=== PATIENT | male | born 1955 | race African-American/Black ===

== ENCOUNTER 2017-01-19 01:04 | Emergency (ER) | payer OTHER ==
[~2017-01-19] VITALS: Ht 168.9 cm; Wt 115.8 kg
[2017-01-19 01:04] VITALS: Ht 168.9 cm; Wt 115.8 kg
[~2017-01-19 01:04] MED LIST: ACET325T51 PO; AMIO200T2 PO; ASPI81TA2 PO; DABI150C PO; DIGO250T72 PO; FURO80TA2 PO; HYDR-4078 PO; INSU100C14 SQ; INSU3INS3 SQ; LIRA0.6P2 SQ; MAGN400T6 PO; METO100T5 PO; MULT-1243 PO; OMEP-122 PO; POTA-81 PO; ROSU20TA PO; SPIR50TA3 PO; TAMS-1 PO
--- OUTSIDE RECORDS SUMMARY | 2017-01-19 01:08 | XMS REPORT | Referral Summary ---
Author Author [facility] Organization [facility] Address Unknown Phone Unavailable Care Team Providers Care Tile Applicator Name Role Phone Jatin Hancock Primary Care Physician [phone] Encounter [facility] [id number] Date(s): 12/14/16 - 12/14/16 [facility] [address], [place] [address] Discharge Diagnosis: HFrEF (heart failure with reduced ejection fraction) Discharge Disposition: 01-Home or Self Care Attending Physician: Marika Wilson APRN, NP-C Admitting Physician: Marika Wilson APRN DIGITAL MEDIA COORDINATORParvezC Vital Signs Most recent to 1 oldest [Reference Range]: Peripheral Pulse 72 bpm Rate [60-100 bpm] (12/14/16 8:28 AM) Blood Pressure 126/70 mmHg [90-140/60-90 mmHg] (12/14/16 8:28 AM) Problem List Condition Effective Dates Status Health Status Informant Adult-onset Active obesity(Confirmed) Afib(Confirmed) Active Benign essential Active hypertension(Confirm ed) Pacemaker(Confirmed) Active patient Cardiomyopathy(Confi Active rmed) Combined form of Active senile cataract(Confirmed) Arrhythmia(Confirmed Active ) CHF (congestive Active heart failure)(Confirmed) CAD (coronary artery Active disease)(Confirmed) Generalized Active osteoarthritis(Confi rmed) Diabetes Active uncontrolled, ophth NT ST(Confirmed) Encounter for Active therapeutic drug monitoring(Confirmed ) Dyslipidemia(Confirm Active ed) Hx of amiodarone Active therapy(Confirmed) Anticoagulation Active adequate(Confirmed) AICD (automatic Active patient cardioverter/defibri llator) present(Confirmed) Heart Active disease(Confirmed) Erectile Active dysfunction(Confirme d) Irregular heart Active rhythm(Confirmed) Macular Active edema(Confirmed) Morbid Active obesity(Confirmed) Multinodular Active goiter(Confirmed) DUYEN (obstructive Active sleep apnea)(Confirmed) Periodic limb Active movements of sleep(Confirmed) Proliferative Active diabetic retinopathy(Confirme d) PDR (proliferative Active diabetic retinopathy)(Confirm ed) Retinal Active edema(Confirmed) DM (diabetes Active mellitus), type 2 with ophthalmic complications(Confir med) Type II diabetes Active mellitus uncontrolled (finding)(Confirmed) Solitary thyroid Active nodule(Confirmed) Allergies, Adverse Reactions, Alerts No Known Medication Allergies Medications acetaminophen 325 mg oral tablet 650 mg 2 tabs, Oral, q4hr, Pain Mild (1-3), 0 Refill(s) Start Date: 07/22/15 Status: Ordered amiodarone 200 mg oral tablet See Instructions, TAKE ONE TABLET BY MOUTH EVERY DAY, # 30 tabs, 5 Refill(s), eRx: [facility] #[id number], TAKE ONE TABLET BY MOUTH EVERY DAY Start Date: 06/20/16 Status: Ordered aspirin 81 mg, Oral, Daily, 0 Refill(s) Start Date: 08/11/16 Status: Ordered Centrum Silver 1 tabs, Oral, Daily, 0 Refill(s) Start Date: 04/09/14 Status: Ordered digoxin 250 mcg (0.25 mg) oral tablet See Instructions, TAKE ONE TABLET BY MOUTH EVERY DAY, # 90 tabs, eRx: [facility] #[id number], TAKE ONE TABLET BY MOUTH EVERY DAY Start Date: 08/11/16 Status: Ordered Entresto 49 mg-51 mg oral tablet 1 tabs, Oral, BID, # 60 tabs, 0 Refill(s), samples given to patient (Rx) Start Date: 11/30/16 Status: Ordered FREESTYLE LITE TEST STRIP See Instructions, CHECK BLOOD SUGAR THREE TIMES A DAY, # 100 strip, 4 Refill(s) , eRx: [facility] #[id number], CHECK BLOOD SUGAR THREE TIMES A DAY Start Date: 05/17/16 Status: Ordered furosemide 80 mg oral tablet See Instructions, TAKE ONE TABLET BY MOUTH DAILY, # 90 tabs, 1 Refill(s), eRx: [facility] #[id number], TAKE ONE TABLET BY MOUTH DAILY Start Date: 05/17/16 Status: Ordered Klor-Con M20 oral tablet, extended release See Instructions, TAKE TWO TABLETS BY MOUTH EVERY MORNING AND ONE TABLET BY MOUTH EVERY NIGHT AT BEDTIME, # 150 tabs, 0 Refill(s), Pharmacy: [facility] #[id number], TAKE TWO TABLETS BY MOUTH EVERY MORNING AND ONE TABLET BY MOUTH EVERY NIGHT AT BED... Start Date: 11/02/16 Status: Ordered KRO PEN NEEDLES 31G 6MM See Instructions, INJECT 5 TIMES DAILY, # 500 unknown unit, 2 Refill(s), eRx: [facility] #[id number], INJECT 5 TIMES DAILY Start Date: 01/19/16 Status: Ordered Lantus Solostar Pen 100 units/mL subcutaneous solution See Instructions, INJECT 52 UNITS SUB-Q IN THE MORNING AND 50 UNITS AT NIGHT, # 45 unknown unit, 11 Refill(s), eRx: [facility] #[id number], INJECT 52 UNITS SUB-Q IN THE MORNING AND 50 UNITS AT NIGHT Start Date: 11/23/15 Status: Ordered magnesium oxide 400 mg, Oral, Daily, as needed, 0 Refill(s) Start Date: 07/25/14 Status: Ordered Metoprolol Tartrate 100 mg oral tablet See Instructions, TAKE ONE AND ONE-HALF TABLETS BY MOUTH EVERY MORNING, AND ONE TABLET IN THE EVENING, # 225 tabs, eRx: [facility] [place] #[id number] Start Date: 10/28/16 Status: Ordered [place] 10 mg-325 mg oral tablet 1 tabs, Oral, q6hr, as needed for pain, May fill 12/17/16, # 60 tabs, 0 Refill(s) Start Date: 12/12/16 Status: Ordered NovoLOG FlexPen 100 units/mL subcutaneous solution See Instructions, INJECT 9 UNITS SUBCUTANEOUSLY BEFORE BREAKFAST, 17-22 UNITS BEFORE LUNCH, AND 28-38 UNITS BEFORE DINNER., # 30 unknown unit, 4 Refill(s), eRx: [facility] #[id number], INJECT 9 UNITS SUBCUTANEOUSLY BEFORE BREAKFAST, 17-22 UNITS BEFO... Start Date: 07/21/16 Status: Ordered omeprazole 20 mg oral delayed release capsule See Instructions, TAKE ONE CAPSULE BY MOUTH DAILY BEFORE BREAKFAST, # 30 caps, eRx: [facility] #[id number] Start Date: 11/04/16 Status: Ordered Pradaxa 150 mg oral capsule See Instructions, TAKE ONE CAPSULE BY MOUTH TWICE A DAY, # 180 caps, eRx: [facility] #[id number], TAKE ONE CAPSULE BY MOUTH TWICE A DAY Start Date: 10/12/16 Status: Ordered rosuvastatin 20 mg oral tablet See Instructions, TAKE ONE-HALF TABLET BY MOUTH DAILY, # 15 tabs, 3 Refill(s), eRx: [facility] #[id number] Start Date: 12/06/16 Status: Ordered spironolactone 50 mg oral tablet See Instructions, TAKE ONE TABLET BY MOUTH TWICE A DAY, # 60 tabs, 5 Refill(s), eRx: [facility] #[id number], TAKE ONE TABLET BY MOUTH TWICE A DAY Start Date: 10/06/16 Status: Ordered tamsulosin 0.4 mg oral capsule See Instructions, TAKE ONE CAPSULE BY MOUTH DAILY, # 30 caps, 1 Refill(s), eRx: [facility] #[id number] Start Date: 11/28/16 Status: Ordered Viagra 100 mg oral tablet 1 tabs, Oral, Daily, as needed 1 hour prior to intercourse, # 10 tabs, 0 Refill( s), Pharmacy: [facility] #[id number], 1 tabs Oral Daily,PRN:as needed 1 hour prior to intercourse Start Date: 07/30/14 Status: Ordered Victoza 18 mg/3 mL subcutaneous solution See Instructions, DIAL AND INJECT SUBCUTANEOUSLY 1.8MG DAILY, # 9 unknown unit, 4 Refill(s), eRx: [facility] #[id number], DIAL AND INJECT SUBCUTANEOUSLY 1.8MG DAILY Start Date: 07/12/16 Status: Ordered Results No data available for this section Immunizations Given and Recorded Vaccine Date Status Refusal Reason tetanus/diphth/pertuss (Tdap) adult/adol 05/13/15 Given influenza virus vaccine, inactivated1 08/10/16 Recorded influenza virus vaccine, inactivated 07/30/14 Recorded influenza virus vaccine, live 09/03/13 Given influenza virus vaccine, live 08/30/12 Given pneumococcal 23-polyvalent vaccine 08/21/03 Given 1Location History: given at [facility] [place] Procedures Procedure Date Related Diagnosis Body Site Colonoscopy: polyps (3), tubular adenoma 07/06/07 Implantable defibrillator Implantation of heart pacemaker - single chamber Social History Social History Type Response Smoking Status Never smoker Assessment and Plan Referrals to Other Providers Referred by: Marika Wilson APRN, DIGITAL MEDIA COORDINATOR-C
--- OUTSIDE RECORDS SUMMARY | 2017-01-19 01:09 | XMS REPORT | Referral Summary ---
Author Author [facility] Organization [facility] Address Unknown Phone Unavailable Care Team Providers Care Fast Food Cook Name Role Phone Jatin Hancock Primary Care Physician [phone] Encounter [facility] [id number] Date(s): 11/11/16 - 11/11/16 [facility] [address] [place], [place] [address] Discharge Disposition: 01-Home or Self Care Attending Physician: Guille Bird MD Referring Physician: Guille Bird MD Vital Signs No data available for this section Problem List Condition Effective Dates Status Health [...] DAY, # 30 tabs, 5 Refill(s), eRx: [facility] #[id number], TAKE ONE TABLET BY MOUTH EVERY DAY Start Date: 06/20/16 Status: Ordered aspirin 81 mg, Oral, Daily, 0 Refill(s) Start Date: 08/11/16 Status: Ordered Centrum Silver 1 tabs, Oral, Daily, 0 Refill(s) Start Date: 04/09/14 Status: Ordered digoxin 250 mcg (0.25 mg) oral tablet See Instructions, TAKE ONE TABLET BY MOUTH EVERY DAY, # 90 tabs, eRx: [facility] #[id number], TAKE ONE TABLET BY MOUTH EVERY DAY Start Date: 08/11/16 Status: Ordered Flomax 0.4 mg oral capsule 0.4 mg 1 caps, Oral, Daily, # 30 caps, 2 Refill(s), Pharmacy: [facility] # [id number], 1 caps Oral Daily Start Date: 03/19/15 Status: Ordered FREESTYLE LITE TEST STRIP See Instructions, CHECK BLOOD SUGAR THREE TIMES A DAY, # 100 strip, 4 Refill(s) , eRx: [facility] #[id number], CHECK BLOOD SUGAR THREE TIMES A DAY Start Date: 05/17/16 Status: Ordered FREESTYLE LITE TEST STRIP See Instructions, CHECK BLOOD SUGAR THREE TIMES A DAY, # 100 strip, 5 Refill(s) , eRx: [facility] #[id number], CHECK BLOOD SUGAR THREE TIMES A DAY Start Date: 09/07/15 Status: Ordered furosemide 80 mg oral tablet See Instructions, TAKE ONE TABLET BY MOUTH DAILY, # 90 tabs, 1 Refill(s), eRx: [facility] #[id number], TAKE ONE TABLET BY MOUTH DAILY Start Date: 05/17/16 Status: Ordered Glucometer strips (DME) DME Item freestyle lite test strips check bs tid, See Instructions, # 100 Each , 6 Refill(s), Pharmacy: [facility] #[id number], freestyle lite test strips; check bs tid, Supply Start Date: 11/03/14 Status: Ordered insulin syringe, strips, flexpen insulin syringe, strips, flexpen, 0 Refill(s) Start Date: 04/09/14 Status: Ordered Klor-Con M20 oral tablet, extended release See Instructions, TAKE TWO TABLETS BY MOUTH EVERY MORNING AND ONE TABLET BY MOUTH EVERY NIGHT AT BEDTIME, # 150 tabs, 0 Refill(s), Pharmacy: [facility] #[id number], TAKE TWO TABLETS BY MOUTH EVERY MORNING AND ONE TABLET BY MOUTH EVERY NIGHT AT BED... Start Date: 11/02/16 Status: Ordered KRO PEN NEEDLES 31G 6MM See Instructions, INJECT 5 TIMES DAILY, # 500 unknown unit, 2 Refill(s), eRx: [facility] #[id number], INJECT 5 TIMES DAILY Start Date: 01/19/16 Status: Ordered Lantus Solostar Pen 100 units/mL subcutaneous solution See Instructions, INJECT 52 UNITS SUB-Q IN THE MORNING AND 50 UNITS AT NIGHT, # 45 unknown unit, 11 Refill(s), eRx: [facility] #[id number], INJECT 52 UNITS SUB-Q IN THE MORNING AND 50 UNITS AT NIGHT Start Date: 11/23/15 Status: Ordered lisinopril 20 mg oral tablet See Instructions, TAKE ONE TABLET BY MOUTH TWICE A DAY, # 180 tabs, 1 Refill(s) , Pharmacy: [facility] #[id number] Start Date: 08/24/16 Status: Ordered magnesium oxide 400 mg, Oral, Daily, 0 Refill(s) Start Date: 07/25/14 Status: Ordered Metoprolol Tartrate 100 mg oral tablet See Instructions, TAKE ONE AND ONE-HALF TABLETS BY MOUTH EVERY MORNING, AND ONE TABLET IN THE EVENING, # 225 tabs, eRx: [facility] #[id number] Start Date: 10/28/16 Status: Ordered [place] 10 mg-325 mg oral tablet 1 tabs, Oral, q6hr, as needed for pain, # 60 tabs, 0 Refill(s) Start Date: 10/19/16 Status: Ordered NovoLOG FlexPen 100 units/mL subcutaneous solution See Instructions, INJECT 9 UNITS SUBCUTANEOUSLY BEFORE BREAKFAST, 17-22 UNITS BEFORE LUNCH, AND 28-38 UNITS BEFORE DINNER., # 30 unknown unit, 4 Refill(s), eRx: [facility] #[id number], INJECT 9 UNITS SUBCUTANEOUSLY BEFORE BREAKFAST, 17-22 UNITS BEFO... Start Date: 07/21/16 Status: Ordered omeprazole 20 mg oral delayed release capsule See Instructions, TAKE ONE CAPSULE BY MOUTH DAILY BEFORE BREAKFAST, # 30 caps, eRx: [facility] #[id number] Start Date: 11/04/16 Status: Ordered Pradaxa 150 mg oral capsule See Instructions, TAKE ONE CAPSULE BY MOUTH TWICE A DAY, # 180 caps, eRx: [facility] #[id number], TAKE ONE CAPSULE BY MOUTH TWICE A DAY Start Date: 10/12/16 Status: Ordered rosuvastatin 20 mg oral tablet See Instructions, TAKE ONE-HALF TABLET BY MOUTH DAILY, # 15 tabs, 0 Refill(s), Pharmacy: [facility] #[id number], TAKE ONE-HALF TABLET BY MOUTH DAILY Start Date: 11/02/16 Status: Ordered spironolactone 50 mg oral tablet See Instructions, TAKE ONE TABLET BY MOUTH TWICE A DAY, # 60 tabs, 5 Refill(s), eRx: [facility] #[id number], TAKE ONE TABLET BY MOUTH TWICE A DAY Start Date: 10/06/16 Status: Ordered Viagra 100 mg oral tablet 1 tabs, Oral, Daily, as needed 1 hour prior to intercourse, # 10 tabs, 0 Refill( s), Pharmacy: [facility] #[id number], 1 tabs Oral Daily,PRN:as needed 1 hour prior to intercourse Start Date: 07/30/14 Status: Ordered Victoza 18 mg/3 mL subcutaneous solution See Instructions, DIAL AND INJECT SUBCUTANEOUSLY 1.8MG DAILY, # 9 unknown unit, 4 Refill(s), eRx: [facility] #[id number], DIAL AND INJECT SUBCUTANEOUSLY 1.8MG DAILY Start [...] vaccine 08/21/03 Given 1Location History: given at [facility] [place] Procedures Procedure Date Related Diagnosis Body Site Colonoscopy: polyps (3), tubular adenoma 07/06/07 Implantable defibrillator Implantation of heart pacemaker - single chamber Social History Social History Type Response Smoking Status Never smoker Assessment and Plan No data available for this section
--- OUTSIDE RECORDS SUMMARY | 2017-01-19 01:09 | XMS REPORT | Referral Summary ---
Author Author [facility] Organization [facility] Address Unknown Phone Unavailable Care Team Providers Care Statistical Machine Mechanic Name Role Phone Jatin Hancock Primary Care Physician [phone] Encounter [facility] [id number] Date(s): 08/24/16 - 08/24/16 [facility], [address] [place] [id number] Discharge Diagnosis: AICD (automatic cardioverter/defibrillator) present Discharge Diagnosis: Encounter for therapeutic drug monitoring Discharge Diagnosis: Chest pain Discharge Diagnosis: Pacemaker Discharge Diagnosis: Multinodular goiter Discharge Diagnosis: Adult-onset obesity Discharge Diagnosis: DM (diabetes mellitus), type 2 with ophthalmic complications Discharge Diagnosis: Benign essential hypertension Discharge Diagnosis: CAD (coronary artery disease) Discharge Diagnosis: Afib Discharge Disposition: 01-Home or Self Care Attending Physician: Markell Hancock MD Admitting Physician: Markell Hancock MD Vital Signs Most recent to 1 oldest [Reference Range]: Blood Pressure 140/90 mmHg [90-140/60-90 mmHg] (08/24/16 9:49 AM) Problem List Condition Effective Dates Status [...] Irregular heart Active rhythm(Confirmed) Macular Active edema(Confirmed) Multinodular Active goiter(Confirmed) Proliferative Active diabetic retinopathy(Confirme d) PDR (proliferative [...] DAY, # 30 tabs, 5 Refill(s), eRx: [facility] #[id number], TAKE ONE TABLET BY MOUTH EVERY DAY Start Date: 06/20/16 Status: Ordered aspirin 81 mg, Oral, Daily, 0 Refill(s) Start Date: 08/11/16 Status: Ordered Centrum Silver 1 tabs, Oral, Daily, 0 Refill(s) Start Date: 04/09/14 Status: Ordered digoxin 250 mcg (0.25 mg) oral tablet See Instructions, TAKE ONE TABLET BY MOUTH EVERY DAY, # 90 tabs, eRx: [facility] #[id number], TAKE ONE TABLET BY MOUTH EVERY DAY Start Date: 08/11/16 Status: Ordered Flomax 0.4 mg oral capsule 0.4 mg 1 caps, Oral, Daily, # 30 caps, 2 Refill(s), Pharmacy: [facility] # [id number], 1 caps Oral Daily Start Date: 03/19/15 Status: Ordered FREESTYLE LITE TEST STRIP See Instructions, CHECK BLOOD SUGAR THREE TIMES A DAY, # 100 strip, 4 Refill(s) , eRx: [facility] #[id number], CHECK BLOOD SUGAR THREE TIMES A DAY Start Date: 05/17/16 Status: Ordered FREESTYLE LITE TEST STRIP See Instructions, CHECK BLOOD SUGAR THREE TIMES A DAY, # 100 strip, 5 Refill(s) , eRx: [facility] #[id number], CHECK BLOOD SUGAR THREE TIMES A DAY Start Date: 09/07/15 Status: Ordered furosemide 80 mg oral tablet See Instructions, TAKE ONE TABLET BY MOUTH DAILY, # 90 tabs, 1 Refill(s), eRx: [facility] #[id number], TAKE ONE TABLET BY MOUTH DAILY Start Date: 05/17/16 Status: Ordered Glucometer strips (DME) DME Item freestyle lite test strips check bs tid, See Instructions, # 100 Each , 6 Refill(s), Pharmacy: [facility] #[id number], freestyle lite test strips; check bs tid, Supply Start Date: 11/03/14 Status: Ordered insulin syringe, strips, flexpen insulin syringe, strips, flexpen, 0 Refill(s) Start Date: 04/09/14 Status: Ordered Klor-Con M20 oral tablet, extended release See Instructions, TAKE TWO TABLETS BY MOUTH EVERY MORNING AND ONE TABLET BY MOUTH EVERY NIGHT AT BEDTIME, # 150 tabs, eRx: [facility] #[id number], TAKE TWO TABLETS BY MOUTH EVERY MORNING AND ONE TABLET BY MOUTH EVERY NIGHT AT BEDTIME Start Date: 08/11/16 Status: Ordered KRO PEN NEEDLES 31G 6MM See Instructions, INJECT 5 TIMES DAILY, # 500 unknown unit, 2 Refill(s), eRx: [facility] #[id number], INJECT 5 TIMES DAILY Start Date: 01/19/16 Status: Ordered Lantus Solostar Pen 100 units/mL subcutaneous solution See Instructions, INJECT 52 UNITS SUB-Q IN THE MORNING AND 50 UNITS AT NIGHT, # 45 unknown unit, 11 Refill(s), eRx: [facility] #[id number], INJECT 52 UNITS SUB-Q IN THE MORNING AND 50 UNITS AT NIGHT Start Date: 11/23/15 Status: Ordered lisinopril 20 mg oral tablet See Instructions, TAKE ONE TABLET BY MOUTH TWICE A DAY, # 180 tabs, 1 Refill(s) , Pharmacy: [facility] #[id number] Start Date: 08/24/16 Status: Ordered magnesium oxide 400 mg, Oral, Daily, 0 Refill(s) Start Date: 07/25/14 Status: Ordered Metoprolol Tartrate 100 mg oral tablet See Instructions, TAKE ONE AND ONE-HALF TABLETS BY MOUTH EVERY MORNING, AND ONE TABLET IN THE EVENING, # 225 tabs, eRx: [facility] #[id number], TAKE ONE AND ONE-HALF TABLETS BY MOUTH EVERY MORNING, AND ONE TABLET IN THE EVENING Start Date: 07/29/16 Status: Ordered [place] 10 mg-325 mg oral tablet 1 tabs, Oral, q6hr, as needed for pain, # 60 tabs, 0 Refill(s) Start Date: 08/22/16 Status: Ordered NovoLOG FlexPen 100 units/mL subcutaneous solution See Instructions, INJECT 9 UNITS SUBCUTANEOUSLY BEFORE BREAKFAST, 17-22 UNITS BEFORE LUNCH, AND 28-38 UNITS BEFORE DINNER., # 30 unknown unit, 4 Refill(s), eRx: [facility] #[id number], INJECT 9 UNITS SUBCUTANEOUSLY BEFORE BREAKFAST, 17-22 UNITS BEFO... Start Date: 07/21/16 Status: Ordered omeprazole 20 mg oral delayed release tablet 20 mg 1 tabs, Oral, Daily, 0 Refill(s) Start Date: 08/11/16 Status: Ordered Pradaxa 150 mg oral capsule See Instructions, TAKE ONE CAPSULE BY MOUTH TWICE A DAY, # 180 caps, eRx: [facility] #[id number], TAKE ONE CAPSULE BY MOUTH TWICE A DAY Start Date: 07/08/16 Status: Ordered rosuvastatin 20 mg oral tablet See Instructions, TAKE ONE-HALF TABLET BY MOUTH DAILY, # 15 tabs, eRx: [facility] #[id number], TAKE ONE-HALF TABLET BY MOUTH DAILY Start Date: 08/15/16 Status: Ordered spironolactone 50 mg oral tablet 50 mg 1 tabs, Oral, BID, # 60 tabs, 3 Refill(s), Pharmacy: [facility] # [id number], 1 tabs Oral BID Start Date: 06/07/16 Status: Ordered Viagra 100 mg oral tablet 1 tabs, Oral, Daily, as needed 1 hour prior to intercourse, # 10 tabs, 0 Refill( s), Pharmacy: [facility] #[id number], 1 tabs Oral Daily,PRN:as needed 1 hour prior to intercourse Start Date: 07/30/14 Status: Ordered Victoza 18 mg/3 mL subcutaneous solution See Instructions, DIAL AND INJECT SUBCUTANEOUSLY 1.8MG DAILY, # 9 unknown unit, 4 Refill(s), eRx: [facility] #[id number], DIAL AND INJECT SUBCUTANEOUSLY 1.8MG DAILY Start Date: 07/12/16 Status: Ordered Results No data available for this section Immunizations Vaccine Date Refusal Reason tetanus/diphth/pertuss (Tdap) adult/adol 05/13/15 influenza virus vaccine, inactivated1 08/10/16 influenza virus vaccine, inactivated 07/30/14 influenza virus vaccine, live 09/03/13 influenza virus vaccine, live 08/30/12 pneumococcal 23-polyvalent vaccine 08/21/03 1Location History: given at [facility] Procedures Procedure Date Related Diagnosis Body Site Colonoscopy: polyps (3), tubular adenoma 07/06/07 Implantable defibrillator Implantation of heart pacemaker - single chamber Social History Social History Type Response Smoking Status Never smoker Assessment and Plan Extracted from: Title: Ambulatory Patient Education Author: Markell Hancock MD Date: Cardiovascular Atrial Fibrillation Atrial fibrillation is a type of irregular heart rhythm (arrhythmia). During atrial fibrillation, the upper chambers of the heart (atria) quiver continuously in a chaotic pattern. This causes an irregular and often rapid heart rate. Atrial fibrillation is the result of the heart becoming overloaded with disorganized signals that tell it to beat. These signals are normally released one at a time by a part of the right atrium called the sinoatrial node. They then travel from the atria to the lower chambers of the heart (ventricles), causing the atria and ventricles to contract and pump blood as they pass. In atrial fibrillation, parts of the atria outside of the sinoatrial node also release these signals. This results in two problems. First, the atria receive so many signals that they do not have time to fully contract. Second, the ventricles, which can only receive one signal at a time, beat irregularly and out of rhythm with the atria. There are three types of atrial fibrillation: Paroxysmal. Paroxysmal atrial fibrillation starts suddenly and stops on its own within a week. Persistent. Persistent atrial fibrillation lasts for more than a week. It may stop on its own or with treatment. Permanent. Permanent atrial fibrillation does not go away. Episodes of atrial fibrillation may lead to permanent atrial fibrillation. Atrial fibrillation can prevent your heart from pumping blood normally. It increases your risk of stroke and can lead to heart failure. CAUSES Heart conditions, including a heart attack, heart failure, coronary artery disease, and heart valve conditions. Inflammation of the sac that surrounds the heart (pericarditis). Blockage of an artery in the lungs (pulmonary embolism). Pneumonia or other infections. Chronic lung disease. Thyroid problems, especially if the thyroid is overactive ( hyperthyroidism). Caffeine, excessive alcohol use, and use of some illegal drugs. Use of some medicines, including certain decongestants and diet pills. Heart surgery. defects. Sometimes, no cause can be found. When this happens, the atrial fibrillation is called lone atrial fibrillation. The risk of complications from atrial fibrillation increases if you have lone atrial fibrillation and you are age 60 years or older. RISK FACTORS Heart failure. Coronary artery disease. Diabetes mellitus. High blood pressure (hypertension). Obesity. Other arrhythmias. Increased age. SIGNS AND SYMPTOMS A feeling that your heart is beating rapidly or irregularly. A feeling of discomfort or pain in your chest. Shortness of breath. Sudden light-headedness or weakness. Getting tired easily when exercising. Urinating more often than normal (mainly when atrial fibrillation first begins). In paroxysmal atrial fibrillation, symptoms may start and suddenly stop. DIAGNOSIS Your health care provider may be able to detect atrial fibrillation when taking your pulse. Your health care provider may have you take a test called an ambulatory electrocardiogram (ECG). An ECG records your heartbeat patterns over a 24-hour period. You may also have other tests, such as: Transthoracic echocardiogram (TTE). During echocardiography, sound waves are used to evaluate how blood flows through your heart. Transesophageal echocardiogram (YG). Stress test. There is more than one type of stress test. If a stress test is needed, ask your health care provider about which type is best for you. Chest X-ray exam. Blood tests. Computed tomography (CT). TREATMENT Treatment may include: Treating any underlying conditions. For example, if you have an overactive thyroid, treating the condition may correct atrial fibrillation. Taking medicine. Medicines may be given to control a rapid heart rate or to prevent blood clots, heart failure, or a stroke. Having a procedure to correct the rhythm of the heart: Electrical cardioversion. During electrical cardioversion, a controlled, low-energy shock is delivered to the heart through your skin. If you have chest pain, very low blood pressure, or sudden heart failure, this procedure may need to be done as an emergency. Catheter ablation. During this procedure, heart tissues that send the signals that cause atrial fibrillation are destroyed. Surgical ablation. During this surgery, thin lines of heart tissue that carry the abnormal signals are destroyed. This procedure can either be an open- heart surgery or a minimally invasive surgery. With the minimally invasive surgery, small cuts are made to access the heart instead of a large opening. Pulmonary venous isolation. During this surgery, tissue around the veins that carry blood from the lungs (pulmonary veins) is destroyed. This tissue is thought to carry the abnormal signals. HOME CARE INSTRUCTIONS Take medicines only as directed by your health care provider. Some medicines can make atrial fibrillation worse or recur. If blood thinners were prescribed by your health care provider, take them exactly as directed. Too much blood-thinning medicine can cause bleeding. If you take too little, you will not have the needed protection against stroke and other problems. Perform blood tests at home if directed by your health care provider. Perform blood tests exactly as directed. Quit smoking if you smoke. Do not drink alcohol. Do not drink caffeinated beverages such as coffee, soda, and some teas. You may drink decaffeinated coffee, soda, or tea. Maintain a healthy weight.Do not use diet pills unless your health care provider approves. They may make heart problems worse. Follow diet instructions as directed by your health care provider. Exercise regularly as directed by your health care provider. Keep all follow-up visits as directed by your health care provider. This is important. PREVENTION The following substances can cause atrial fibrillation to recur: Caffeinated beverages. Alcohol. Certain medicines, especially those used for breathing problems. Certain herbs and herbal medicines, such as those containing ephedra or ginseng. Illegal drugs, such as cocaine and amphetamines. Sometimes medicines are given to prevent atrial fibrillation from recurring. Proper treatment of any underlying condition is also important in helping prevent recurrence. SEEK MEDICAL CARE IF: You notice a change in the rate, rhythm, or strength of your heartbeat. You suddenly begin urinating more frequently. You tire more easily when exerting yourself or exercising. SEEK IMMEDIATE MEDICAL CARE IF: You have chest pain, abdominal pain, sweating, or weakness. You feel nauseous. You have shortness of breath. You suddenly have swollen feet and ankles. You feel dizzy. Your face or limbs feel numb or weak. You have a change in your vision or speech. MAKE SURE YOU: Understand these instructions. Will watch your condition. Will get help right away if you are not doing well or get worse. This information is not intended to replace advice given to you by your health care provider. Make sure you discuss any questions you have with your health care provider. Document Released: 10/23/2006 Document Revised: 11/13/2015 Document Reviewed: [employer] Interactive Patient Education 2016 [employer] No follow up information was provided. Extracted from: Title: Office Visit Note Author: Markell Hancock MD Date: 08/24/16 Assessment/Plan Adult-onset obesity Diet and exercise as tolerated and feasible. Consider medication when interested. Ordered: TSH with Reflex Free T4 Afib This issue was reviewed, appears stable, and current therapy continued except as mentioned. Appropriate lab was reviewed from the most recent appropriate entry and lab was ordered if needed in the cpoe/nursing orders, and follow up recommended generally in 90 days and no later then six months. Seeing Dr. Bird on 08/26. AICD (automatic cardioverter/defibrillator) present Seeing Dr. Bird on 08/26. Benign essential hypertension This issue was reviewed, appears stable, and current therapy continued except as mentioned. Appropriate lab was reviewed from the most recent appropriate entry and lab was ordered if needed in the cpoe /nursing orders, and follow up recommended generally in 90 days and no later then six months. The patient reports their blood pressure has been stable at home and is not having any significant or related problems. There has been no chest pain, chest pressure, soa/herrera. Ordered: TSH with Reflex Free T4 CAD (coronary artery disease) This issue was reviewed, appears stable, and current therapy continued except as mentioned. Appropriate lab was reviewed from the most recent appropriate entry and lab was ordered if needed in the cpoe /nursing orders, and follow up recommended generally in 90 days and no later then six months. Chest pain The patient's issue is nearly or completely resolved. There is no further issues or testing desired by them at this time. Negative stress test on 08/11. DM (diabetes mellitus), type 2 with ophthalmic complications This issue was reviewed, appears stable, and current therapy continued except as mentioned. Appropriate lab was reviewed from the most recent appropriate entry and lab was ordered if needed in the cpoe/nursing orders, and follow up recommended generally in 90 days and no later then six months. The patient was notified for the need for regular quarterly f/u of their diabetes. Further any pertinent medication, supplies, etc were refilled. Additionally, they are to have annual eye exams, foot exams, and regular care. Needs to monitor closely. Ordered: TSH with Reflex Free T4 Encounter for therapeutic drug monitoring Lab pending for amiodarone at patient request. Multinodular goiter Sono and lab pending at patient request. IMPRESSION: 1. Thyroid gland is enlarged but unchanged. 2. Multiple nodules are again seen bilaterally, not significantly changed from prior sonogram. Followup sonography recommended in six months to reevaluate. [1] Pacemaker This issue was reviewed, appears stable, and current therapy continued except as mentioned. Appropriate lab was reviewed from the most recent appropriate entry and lab was ordered if needed in the cpoe/nursing orders, and follow up recommended generally in 90 days and no later then six months. Seeing Dr. Bird.
--- OUTSIDE RECORDS SUMMARY | 2017-01-19 01:09 | XMS REPORT | Referral Summary ---
Author Author [facility] Organization [facility] Address Unknown Phone Unavailable Care Team Providers Care Wellness Nurse Rn Name Role Phone Jatin Hancock Primary Care Physician [phone] Encounter [facility] [id number] Date(s): 12/22/16 - 12/22/16 [facility] [place] [address] [place], [place] [address] Discharge Disposition: 01-Home or Self Care Attending Physician: Fuad Gordon MD Vital Signs No data available for [...] therapy(Confirmed) Anticoagulation Active adequate(Confirmed) AICD (automatic Active cardioverter/defibri llator) present(Confirmed) Heart Active disease(Confirmed) Erectile Active dysfunction(Confirme d) Irregular heart Active rhythm(Confirmed) Macular Active edema(Confirmed) Morbid Active obesity(Confirmed) Multinodular Active goiter(Confirmed) DUYEN on Active CPAP(Confirmed) Periodic limb Active movements of sleep(Confirmed) Proliferative [...] DAY, # 30 tabs, 5 Refill(s), eRx: [facility] #[id number], TAKE ONE TABLET BY MOUTH EVERY DAY Start Date: 06/20/16 Status: Ordered aspirin 81 mg, Oral, Daily, 0 Refill(s) Start Date: 08/11/16 Status: Ordered Centrum Silver 1 tabs, Oral, Daily, 0 Refill(s) Start Date: 04/09/14 Status: Ordered digoxin 250 mcg (0.25 mg) oral tablet See Instructions, TAKE ONE TABLET BY MOUTH EVERY DAY, # 90 tabs, eRx: [facility] #[id number], TAKE ONE TABLET BY MOUTH EVERY DAY Start Date: 08/11/16 Status: Ordered Entresto 49 mg-51 mg oral tablet 1 tabs, Oral, BID, # 60 tabs, 0 Refill(s), samples given to patient (Rx) Start Date: 11/30/16 Status: Ordered Freestyle lite test strips Freestyle lite test strips, See Instructions, 100 strips check blood sugar 3x/ day dx:E11.9, # 100 Each, 0 Refill(s), Pharmacy: [facility] #[id number], 100 strips check blood sugar 3x/day; dx:E11.9 Start Date: 12/20/16 Status: Ordered furosemide 80 mg oral tablet See Instructions, TAKE ONE TABLET BY MOUTH DAILY, # 90 tabs, 1 Refill(s), eRx: [facility] #[id number], TAKE ONE TABLET BY MOUTH DAILY Start Date: 05/17/16 Status: Ordered Klor-Con M20 oral tablet, extended release See Instructions, TAKE TWO TABLETS BY MOUTH EVERY MORNING AND ONE TABLET BY MOUTH EVERY NIGHT AT BEDTIME, # 150 tabs, 0 Refill(s), Pharmacy: [facility] #[id number], TAKE TWO TABLETS BY MOUTH EVERY MORNING AND ONE TABLET BY MOUTH EVERY NIGHT AT BED... Start Date: 11/02/16 Status: Ordered KRO PEN NEEDLES 31G 6MM See Instructions, INJECT 5 TIMES DAILY, # 500 unknown unit, 2 Refill(s), eRx: [facility] #[id number], INJECT 5 TIMES DAILY Start Date: 01/19/16 Status: Ordered Lantus Solostar Pen 100 units/mL subcutaneous solution See Instructions, INJECT 52 UNITS SUB-Q IN THE MORNING AND 50 UNITS AT NIGHT, # 45 unknown unit, 11 Refill(s), eRx: [facility] #[id number], INJECT 52 UNITS SUB-Q IN THE MORNING AND 50 UNITS AT NIGHT Start Date: 11/23/15 Status: Ordered magnesium oxide 400 mg, Oral, Daily, as needed, 0 Refill(s) Start Date: 07/25/14 Status: Ordered Metoprolol Tartrate 100 mg oral tablet See Instructions, TAKE ONE AND ONE-HALF TABLETS BY MOUTH EVERY MORNING, AND ONE TABLET IN THE EVENING, # 225 tabs, eRx: [facility] #[id number] Start Date: 10/28/16 Status: Ordered [place] 10 mg-325 mg oral tablet 1 tabs, Oral, q6hr, as needed for pain, May fill 12/17/16, # 60 tabs, 0 Refill(s) Start Date: 12/12/16 Status: Ordered NovoLOG FlexPen 100 units/mL subcutaneous solution See Instructions, INJECT 9 UNITS SUBCUTANEOUSLY BEFORE BREAKFAST, 17-22 UNITS BEFORE LUNCH, AND 28-38 UNITS BEFORE DINNER., # 30 unknown unit, 4 Refill(s), eRx: [facility] #[id number], INJECT 9 UNITS SUBCUTANEOUSLY BEFORE BREAKFAST, 17-22 UNITS BEFO... Start Date: 07/21/16 Status: Ordered omeprazole 20 mg oral delayed release capsule See Instructions, TAKE ONE CAPSULE BY MOUTH DAILY BEFORE BREAKFAST, # 30 caps, 2 Refill(s), eRx: [facility] #[id number] Start Date: 12/19/16 Status: Ordered Pradaxa 150 mg oral capsule See Instructions, TAKE ONE CAPSULE BY MOUTH TWICE A DAY, # 180 caps, eRx: [facility] #[id number], TAKE ONE CAPSULE BY MOUTH TWICE A DAY Start Date: 10/12/16 Status: Ordered rosuvastatin 20 mg oral tablet See Instructions, TAKE ONE-HALF TABLET BY MOUTH DAILY, # 15 tabs, 3 Refill(s), eRx: [facility] #[id number] Start Date: 12/06/16 Status: Ordered spironolactone 50 mg oral tablet See Instructions, TAKE ONE TABLET BY MOUTH TWICE A DAY, # 60 tabs, 5 Refill(s), eRx: [facility] #[id number], TAKE ONE TABLET BY MOUTH TWICE A DAY Start Date: 10/06/16 Status: Ordered tamsulosin 0.4 mg oral capsule See Instructions, TAKE ONE CAPSULE BY MOUTH DAILY, # 30 caps, 1 Refill(s), eRx: [facility] #[id number] Start Date: 11/28/16 Status: Ordered Viagra 100 mg oral tablet 1 tabs, Oral, Daily, as needed 1 hour prior to intercourse, # 10 tabs, 0 Refill( s), Pharmacy: [facility] #[id number], 1 tabs Oral Daily,PRN:as needed 1 hour prior to intercourse Start Date: 07/30/14 Status: Ordered Victoza 18 mg/3 mL subcutaneous solution See Instructions, DIAL AND INJECT SUBCUTANEOUSLY 1.8MG DAILY, # 9 unknown unit, 4 Refill(s), eRx: [facility] #[id number], DIAL AND INJECT SUBCUTANEOUSLY 1.8MG DAILY Start [...] vaccine 08/21/03 Given 1Location History: given at [facility] Procedures Procedure Date Related Diagnosis Body Site Colonoscopy: polyps (3), tubular adenoma 07/06/07 Implantable defibrillator Implantation of heart pacemaker - single chamber Social History Social History Type Response Smoking Status Never smoker Assessment and Plan No data available for this section
--- OUTSIDE RECORDS SUMMARY | 2017-01-19 01:09 | XMS REPORT | Referral Summary ---
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 Name Role Phone Jatin Hancock Primary Care Physician [phone] Encounter [facility] [phone] Date(s): 11/03/16 - 11/03/16 [facility] [address] [place], [place] [address] Discharge Diagnosis: Periodic limb movements of sleep Discharge Diagnosis: DUYEN (obstructive sleep apnea) Discharge Diagnosis: Morbid obesity Discharge Disposition: 01-Home or Self Care Attending Physician: Fuad Gordon MD Admitting Physician: Fuad Gordon MD Vital Signs Most recent to 1 oldest [Reference Range]: Peripheral Pulse 88 bpm Rate [60-100 bpm] (11/03/16 10:48 AM) Blood Pressure 122/87 mmHg [90-140/60-90 mmHg] (11/03/16 10:48 AM) Problem List Condition Effective Dates Status [...] DAY, # 30 tabs, 5 Refill(s), eRx: [facility] #[id number], TAKE ONE TABLET BY MOUTH EVERY DAY Start Date: 06/20/16 Status: Ordered aspirin 81 mg, Oral, Daily, 0 Refill(s) Start Date: 08/11/16 Status: Ordered Centrum Silver 1 tabs, Oral, Daily, 0 Refill(s) Start Date: 04/09/14 Status: Ordered digoxin 250 mcg (0.25 mg) oral tablet See Instructions, TAKE ONE TABLET BY MOUTH EVERY DAY, # 90 tabs, eRx: [facility] #[id number], TAKE ONE TABLET BY MOUTH EVERY DAY Start Date: 08/11/16 Status: Ordered Flomax 0.4 mg oral capsule 0.4 mg 1 caps, Oral, Daily, # 30 caps, 2 Refill(s), Pharmacy: [facility] # [id number], 1 caps Oral Daily Start Date: 03/19/15 Status: Ordered FREESTYLE LITE TEST STRIP See Instructions, CHECK BLOOD SUGAR THREE TIMES A DAY, # 100 strip, 4 Refill(s) , eRx: [facility] #[id number], CHECK BLOOD SUGAR THREE TIMES A DAY Start Date: 05/17/16 Status: Ordered FREESTYLE LITE TEST STRIP See Instructions, CHECK BLOOD SUGAR THREE TIMES A DAY, # 100 strip, 5 Refill(s) , eRx: [facility] #[id number], CHECK BLOOD SUGAR THREE TIMES A DAY Start Date: 09/07/15 Status: Ordered furosemide 80 mg oral tablet See Instructions, TAKE ONE TABLET BY MOUTH DAILY, # 90 tabs, 1 Refill(s), eRx: [facility] #[id number], TAKE ONE TABLET BY MOUTH DAILY Start Date: 05/17/16 Status: Ordered Glucometer strips (DME) DME Item freestyle lite test strips check bs tid, See Instructions, # 100 Each , 6 Refill(s), Pharmacy: [facility] #[id number], freestyle lite test strips; check bs tid, Supply Start Date: 11/03/14 Status: Ordered insulin syringe, strips, flexpen insulin syringe, strips, flexpen, 0 Refill(s) Start Date: 04/09/14 Status: Ordered Klor-Con M20 oral tablet, extended release See Instructions, TAKE TWO TABLETS BY MOUTH EVERY MORNING AND ONE TABLET BY MOUTH EVERY NIGHT AT BEDTIME, # 150 tabs, 0 Refill(s), Pharmacy: [facility] #[id number], TAKE TWO TABLETS BY MOUTH EVERY MORNING AND ONE TABLET BY MOUTH EVERY NIGHT AT BED... Start Date: 11/02/16 Status: Ordered KRO PEN NEEDLES 31G 6MM See Instructions, INJECT 5 TIMES DAILY, # 500 unknown unit, 2 Refill(s), eRx: [facility] #[id number], INJECT 5 TIMES DAILY Start Date: 01/19/16 Status: Ordered Lantus Solostar Pen 100 units/mL subcutaneous solution See Instructions, INJECT 52 UNITS SUB-Q IN THE MORNING AND 50 UNITS AT NIGHT, # 45 unknown unit, 11 Refill(s), eRx: [facility] #[id number], INJECT 52 UNITS SUB-Q IN THE MORNING AND 50 UNITS AT NIGHT Start Date: 11/23/15 Status: Ordered lisinopril 20 mg oral tablet See Instructions, TAKE ONE TABLET BY MOUTH TWICE A DAY, # 180 tabs, 1 Refill(s) , Pharmacy: [facility] #[id number] Start Date: 08/24/16 Status: Ordered magnesium oxide 400 mg, Oral, Daily, 0 Refill(s) Start Date: 07/25/14 Status: Ordered Metoprolol Tartrate 100 mg oral tablet See Instructions, TAKE ONE AND ONE-HALF TABLETS BY MOUTH EVERY MORNING, AND ONE TABLET IN THE EVENING, # 225 tabs, eRx: [facility] #[id number] Start Date: 10/28/16 Status: Ordered Vidalia 10 mg-325 mg oral tablet 1 tabs, Oral, q6hr, as needed for pain, # 60 tabs, 0 Refill(s) Start Date: 10/19/16 Status: Ordered NovoLOG FlexPen 100 units/mL subcutaneous solution See Instructions, INJECT 9 UNITS SUBCUTANEOUSLY BEFORE BREAKFAST, 17-22 UNITS BEFORE LUNCH, AND 28-38 UNITS BEFORE DINNER., # 30 unknown unit, 4 Refill(s), eRx: [facility] #[id number], INJECT 9 UNITS SUBCUTANEOUSLY BEFORE BREAKFAST, 17-22 UNITS BEFO... Start Date: 07/21/16 Status: Ordered omeprazole 20 mg oral delayed release tablet 20 mg 1 tabs, Oral, Daily, # 30 tabs, 0 Refill(s), Pharmacy: [facility] # [id number], 1 tabs Oral Daily Start Date: 09/21/16 Status: Ordered Pradaxa 150 mg oral capsule See Instructions, TAKE ONE CAPSULE BY MOUTH TWICE A DAY, # 180 caps, eRx: [facility] #[id number], TAKE ONE CAPSULE BY MOUTH TWICE A DAY Start Date: 10/12/16 Status: Ordered rosuvastatin 20 mg oral tablet See Instructions, TAKE ONE-HALF TABLET BY MOUTH DAILY, # 15 tabs, 0 Refill(s), Pharmacy: [facility] #[id number], TAKE ONE-HALF TABLET BY MOUTH DAILY Start Date: 11/02/16 Status: Ordered spironolactone 50 mg oral tablet See Instructions, TAKE ONE TABLET BY MOUTH TWICE A DAY, # 60 tabs, 5 Refill(s), eRx: [facility] #[id number], TAKE ONE TABLET BY MOUTH TWICE A DAY Start Date: 10/06/16 Status: Ordered Viagra 100 mg oral tablet 1 tabs, Oral, Daily, as needed 1 hour prior to intercourse, # 10 tabs, 0 Refill( s), Pharmacy: [facility] #[id number], 1 tabs Oral Daily,PRN:as needed 1 hour prior to intercourse Start Date: 07/30/14 Status: Ordered Victoza 18 mg/3 mL subcutaneous solution See Instructions, DIAL AND INJECT SUBCUTANEOUSLY 1.8MG DAILY, # 9 unknown unit, 4 Refill(s), eRx: [facility] #[id number], DIAL AND INJECT SUBCUTANEOUSLY 1.8MG DAILY Start [...] vaccine 08/21/03 Given 1Location History: given at [facility] Procedures Procedure Date Related Diagnosis Body Site Colonoscopy: polyps (3), tubular adenoma 07/06/07 Implantable defibrillator Implantation of heart pacemaker - single chamber Social History Social History Type Response Smoking Status Never smoker Assessment and Plan Extracted from: Title: Ambulatory Patient Education Author: Fuad Gordon MD Date: ENT Sleep Apnea Sleep apnea is a sleep disorder characterized by abnormal pauses in breathing while you sleep. When your breathing pauses, the level of oxygen in your blood decreases. This causes you to move out of deep sleep and into light sleep. As a result, your quality of sleep is poor, and the system that carries your blood throughout your body (cardiovascular system) experiences stress. If sleep apnea remains untreated, the following conditions can develop: High blood pressure (hypertension). Coronary artery disease. Inability to achieve or maintain an erection (impotence). Impairment of your thought process (cognitive dysfunction). There are three types of sleep apnea: 1.Obstructive sleep apneaPauses in breathing during sleep because of a blocked airway. 2.Central sleep apneaPauses in breathing during sleep because the area of the brain that controls your breathing does not send the correct signals to the muscles that control breathing. 3. Mixed sleep apneaA combination of both obstructive and central sleep apnea. RISK FACTORS The following risk factors can increase your risk of developing sleep apnea: Being overweight. Smoking. Having narrow passages in your nose and throat. Being of older age. Being male. Alcohol use. Sedative and tranquilizer use. Ethnicity. Among individuals younger than 35 years, Americans are at increased risk of sleep apnea. SYMPTOMS Difficulty staying asleep. Daytime sleepiness and fatigue. Loss of energy. Irritability. Loud, heavy snoring. Morning headaches. Trouble concentrating. Forgetfulness. Decreased interest in sex. Unexplained sleepiness. DIAGNOSIS In order to diagnose sleep apnea, your caregiver will perform a physical examination. A sleep study done in the comfort of your own home may be appropriate if you are otherwise healthy. Your caregiver may also recommend that you spend the night in a sleep lab. In the sleep lab, several monitors record information about your heart, lungs, and brain while you sleep. Your leg and arm movements and blood oxygen level are also recorded. TREATMENT The following actions may help to resolve mild sleep apnea: Sleeping on your side. Using a decongestant if you have nasal congestion. Avoiding the use of depressants, including alcohol, sedatives, and narcotics. Losing weight and modifying your diet if you are overweight. There also are devices and treatments to help open your airway: Oral appliances. These are custom-made mouthpieces that shift your lower jaw forward and slightly open your bite. This opens your airway. Devices that create positive airway pressure. This positive pressure "splints" your airway open to help you breathe better during sleep. The following devices create positive airway pressure: Continuous positive airway pressure (CPAP) device. The CPAP device creates a continuous level of air pressure with an air pump. The air is delivered to your airway through a mask while you sleep. This continuous pressure keeps your airway open. Nasal expiratory positive airway pressure (EPAP) device. The EPAP device creates positive air pressure as you exhale. The device consists of single-use valves, which are inserted into each nostril and held in place by adhesive. The valves create very little resistance when you inhale but create much more resistance when you exhale. That increased resistance creates the positive airway pressure. This positive pressure while you exhale keeps your airway open , making it easier to breath when you inhale again. Bilevel positive airway pressure (BPAP) device. The BPAP device is used mainly in patients with central sleep apnea. This device is similar to the CPAP device because it also uses an air pump to deliver continuous air pressure through a mask. However, with the BPAP machine, the pressure is set at two different levels. The pressure when you exhale is lower than the pressure when you inhale. Surgery. Typically, surgery is only done if you cannot comply with less invasive treatments or if the less invasive treatments do not improve your condition. Surgery involves removing excess tissue in your airway to create a wider passage way. This information is not intended to replace advice given to you by your health care provider. Make sure you discuss any questions you have with your health care provider. Document Released: 10/13/2003 Document Revised: 11/13/2015 Document Reviewed: [employer] Interactive Patient Education 2016 [employer] No follow up information was provided. Extracted from: Title: Sleep Med NPV Office Note Author: Fuad Gordon MD Date: 11/03/16 Impression and Plan Diagnosis DUYEN (obstructive sleep apnea) (IND51-QI G47.33, Discharge, Medical). Morbid obesity (IPX07-FD E66.01, Discharge, Medical). Periodic limb movements of sleep (UCH28-OH G47.61, Discharge, Medical). Dx/Order Association Plan: Diagnosis: 1. DUYEN (obstructive sleep apnea) Comment: DUYEN, severe, not on CPAP therapy Has had at least 30 lb weight gain since last tested in 2001 Having multiple issues with current device, no download information as well Denied mask or pressure issues in past when using per him He is motivated to restart using device We discussed about the neurocognitive and cardiometabolic consequences of untreated DUYEN. He understands that weight gain and aging can increase the severity of the sleep-disordered breathing. On the contrary, weight loss leads to improvement in DUYEN, in general. Given his multiple vascular comorbidity, and his willingness to restart CPAP therapy, discussed--will order new auto-CPAP 8-20 cm H20, nasal mask, and order all CPAP supplies prn Knows that insurance company may want to try to repair device first I am aware that patient now has significant cardiac issues, which may predispose him to having central apnea events (but not necessarily)--will plan to follow downloads--if with signs of possible central events, may need to repeat PAP titration study and go from there He understands that driving while sleepy increases the risk of motor vehicle accidents. Diagnosis: 2. Morbid obesity Comment: Discussed about weight loss Diagnosis: 3. Periodic limb movements of sleep Comment: Previous PSG finding Asymptomatic Will have to revisit once back on CPAP therapy--due to cardiac issues, may have to treat May need to repeat noct ox on CPAP (RA) once (re)established on CPAP therapy. Thank you for the consultation. I will be happy to see the patient back after CPAP setup. .
--- OUTSIDE RECORDS SUMMARY | 2017-01-19 01:09 | XMS REPORT | Referral Summary ---
Author Author [facility] Organization [facility] Address Unknown Phone Unavailable Care Team Providers Care Teacher Music Name Role Phone Jatin Hancock Primary Care Physician [phone] Encounter [facility] [id number] Date(s): 11/30/16 - 11/30/16 [facility] [address] [place], [place] [address] Discharge Diagnosis: AICD (automatic cardioverter/defibrillator) present Discharge Diagnosis: Paroxysmal a-fib Discharge Diagnosis: Congestive heart failure Discharge Diagnosis: Cardiomyopathy Discharge Diagnosis: Hx of amiodarone therapy Discharge Disposition: 01-Home or Self Care Attending Physician: Guille Bird MD Admitting Physician: Guille Bird MD Vital Signs Most recent to 1 oldest [Reference Range]: Peripheral Pulse 76 bpm Rate [60-100 bpm] (11/30/16 7:45 AM) Blood Pressure 142/70 mmHg [90-140/60-90 mmHg] *HI* (11/30/16 7:45 AM) Problem List Condition Effective Dates Status [...] DAY, # 30 tabs, 5 Refill(s), eRx: [facility] #[id number], TAKE ONE TABLET BY MOUTH EVERY DAY Start Date: 06/20/16 Status: Ordered aspirin 81 mg, Oral, Daily, 0 Refill(s) Start Date: 08/11/16 Status: Ordered Centrum Silver 1 tabs, Oral, Daily, 0 Refill(s) Start Date: 04/09/14 Status: Ordered digoxin 250 mcg (0.25 mg) oral tablet See Instructions, TAKE ONE TABLET BY MOUTH EVERY DAY, # 90 tabs, eRx: [facility] #[id number], TAKE ONE TABLET BY MOUTH EVERY DAY Start Date: 08/11/16 Status: Ordered Entresto 49 mg-51 mg oral tablet 1 tabs, Oral, BID, # 60 tabs, 0 Refill(s), samples given to patient (Rx) Start Date: 11/30/16 Status: Ordered FREESTYLE LITE TEST STRIP See Instructions, CHECK BLOOD SUGAR THREE TIMES A DAY, # 100 strip, 4 Refill(s) , eRx: [facility] #[id number], CHECK BLOOD SUGAR THREE TIMES A DAY Start Date: 05/17/16 Status: Ordered FREESTYLE LITE TEST STRIP See Instructions, CHECK BLOOD SUGAR THREE TIMES A DAY, # 100 strip, 5 Refill(s) , eRx: [facility] #[id number], CHECK BLOOD SUGAR THREE TIMES A DAY Start Date: 09/07/15 Status: Ordered furosemide 80 mg oral tablet See Instructions, TAKE ONE TABLET BY MOUTH DAILY, # 90 tabs, 1 Refill(s), eRx: [facility] #[id number], TAKE ONE TABLET BY MOUTH DAILY Start Date: 05/17/16 Status: Ordered Glucometer strips (DME) DME Item freestyle lite test strips check bs tid, See Instructions, # 100 Each , 6 Refill(s), Pharmacy: [facility] #[id number], freestyle lite test strips; check bs tid, Supply Start Date: 11/03/14 Status: Ordered insulin syringe, strips, flexpen insulin syringe, strips, flexpen, 0 Refill(s) Start Date: 04/09/14 Status: Ordered Klor-Con M20 oral tablet, extended release See Instructions, TAKE TWO TABLETS BY MOUTH EVERY MORNING AND ONE TABLET BY MOUTH EVERY NIGHT AT BEDTIME, # 150 tabs, 0 Refill(s), Pharmacy: [facility] #[id number], TAKE TWO TABLETS BY MOUTH EVERY MORNING AND ONE TABLET BY MOUTH EVERY NIGHT AT BED... Start Date: 11/02/16 Status: Ordered KRO PEN NEEDLES 31G 6MM See Instructions, INJECT 5 TIMES DAILY, # 500 unknown unit, 2 Refill(s), eRx: [facility] #[id number], INJECT 5 TIMES DAILY Start Date: 01/19/16 Status: Ordered Lantus Solostar Pen 100 units/mL subcutaneous solution See Instructions, INJECT 52 UNITS SUB-Q IN THE MORNING AND 50 UNITS AT NIGHT, # 45 unknown unit, 11 Refill(s), eRx: [facility] #[id number], INJECT 52 UNITS SUB-Q IN THE MORNING AND 50 UNITS AT NIGHT Start Date: 11/23/15 Status: Ordered magnesium oxide 400 mg, Oral, Daily, as needed, 0 Refill(s) Start Date: 07/25/14 Status: Ordered Metoprolol Tartrate 100 mg oral tablet See Instructions, TAKE ONE AND ONE-HALF TABLETS BY MOUTH EVERY MORNING, AND ONE TABLET IN THE EVENING, # 225 tabs, eRx: [facility] #[id number] Start Date: 10/28/16 Status: Ordered Kenton 10 mg-325 mg oral tablet 1 tabs, Oral, q6hr, as needed for pain, # 60 tabs, 0 Refill(s) Start Date: 11/17/16 Status: Ordered NovoLOG FlexPen 100 units/mL subcutaneous solution See Instructions, INJECT 9 UNITS SUBCUTANEOUSLY BEFORE BREAKFAST, 17-22 UNITS BEFORE LUNCH, AND 28-38 UNITS BEFORE DINNER., # 30 unknown unit, 4 Refill(s), eRx: [facility] #[id number], INJECT 9 UNITS SUBCUTANEOUSLY BEFORE BREAKFAST, 17-22 UNITS BEFO... Start Date: 07/21/16 Status: Ordered omeprazole 20 mg oral delayed release capsule See Instructions, TAKE ONE CAPSULE BY MOUTH DAILY BEFORE BREAKFAST, # 30 caps, eRx: [facility] #[id number] Start Date: 11/04/16 Status: Ordered Pradaxa 150 mg oral capsule See Instructions, TAKE ONE CAPSULE BY MOUTH TWICE A DAY, # 180 caps, eRx: [facility] #[id number], TAKE ONE CAPSULE BY MOUTH TWICE A DAY Start Date: 10/12/16 Status: Ordered rosuvastatin 20 mg oral tablet See Instructions, TAKE ONE-HALF TABLET BY MOUTH DAILY, # 15 tabs, 0 Refill(s), Pharmacy: [facility] #[id number], TAKE ONE-HALF TABLET BY MOUTH DAILY Start Date: 11/02/16 Status: Ordered spironolactone 50 mg oral tablet See Instructions, TAKE ONE TABLET BY MOUTH TWICE A DAY, # 60 tabs, 5 Refill(s), eRx: [facility] #[id number], TAKE ONE TABLET BY MOUTH TWICE A DAY Start Date: 10/06/16 Status: Ordered tamsulosin 0.4 mg oral capsule See Instructions, TAKE ONE CAPSULE BY MOUTH DAILY, # 30 caps, 1 Refill(s), eRx: [facility] #[id number] Start Date: 11/28/16 Status: Ordered Viagra 100 mg oral tablet 1 tabs, Oral, Daily, as needed 1 hour prior to intercourse, # 10 tabs, 0 Refill( s), Pharmacy: [facility] #[id number], 1 tabs Oral Daily,PRN:as needed 1 hour prior to intercourse Start Date: 07/30/14 Status: Ordered Victoza 18 mg/3 mL subcutaneous solution See Instructions, DIAL AND INJECT SUBCUTANEOUSLY 1.8MG DAILY, # 9 unknown unit, 4 Refill(s), eRx: [facility] #[id number], DIAL AND INJECT SUBCUTANEOUSLY 1.8MG DAILY Start Date: 07/12/16 Status: Ordered Results Chemistry Most recent to 1 oldest [Reference Range]: Sodium Lvl [135-144 143 mEq/L mEq/L] (11/30/16 8:45 AM) Potassium Lvl 4.1 mEq/L [3.5-5.2 mEq/L] (11/30/16 8:45 AM) Chloride [99-111 104 mEq/L mEq/L] (11/30/16 8:45 AM) CO2 [23-31 mEq/L] 29 mEq/L (11/30/16 8:45 AM) AGAP [3-20] 10 (11/30/16 8:45 AM) BUN [8-26 mg/dL] 20 mg/dL (11/30/16 8:45 AM) Glucose Lvl [70-99 235 mg/dL mg/dL] *HI* (11/30/16 8:45 AM) Creatinine Lvl 1.02 mg/dL [0.72-1.25 mg/dL] (11/30/16 8:45 AM) eGFR [>60 mL/min] >60 mL/min 1 (11/30/16 8:45 AM) Calcium Lvl 9.0 mg/dL [8.9-10.5 mg/dL] (11/30/16 8:45 AM) BNP [0-99 pg/mL] 164 pg/mL *HI* (11/30/16 8:45 AM) 1Result Comment: Multiply eGFR results by 1.21 for race. Immunizations Given and Recorded Vaccine Date Status Refusal Reason tetanus/diphth/pertuss (Tdap) adult/adol 05/13/15 Given influenza virus vaccine, inactivated1 08/10/16 Recorded influenza virus vaccine, inactivated 07/30/14 Recorded influenza virus vaccine, live 09/03/13 Given influenza virus vaccine, live 08/30/12 Given pneumococcal 23-polyvalent vaccine 08/21/03 Given 1Location History: given at [facility] Procedures Procedure Date Related Diagnosis Body Site Collection of venous blood by venipuncture 11/30/16 Colonoscopy: polyps (3), tubular adenoma 07/06/07 Implantable defibrillator Implantation of heart pacemaker - single chamber Social History Social History Type Response Smoking Status Never smoker Assessment and Plan Extracted from: Title: Ambulatory Patient Education Author: Guille Bird MD Date: Cardiovascular Cardiomyopathy Cardiomyopathy is a long-term (chronic) disease of the heart muscle (myocardium) . Over time, the heart becomes abnormally large, thick, or stiff. This makes it harder for the heart to pump blood and can lead to heart failure. There are several types of cardiomyopathy: Dilated cardiomyopathy. This type causes the ventricles become large and weak. Hypertrophic cardiomyopathy. This type causes the heart muscle to thicken. Restrictive cardiomyopathy. This type causes the heart muscle to become rigid and less elastic. Ischemic cardiomyopathy. This type involves narrowing arteries that cause the mendieta of the heart get thinner. Peripartum cardiomyopathy. This type occurs during or shortly after . CAUSES The cause of cardiomyopathy is often not known. In some cases, it is passed down (inherited) from a family member who also had cardiomyopathy. The disease may develop as a complication of another medical condition. These conditions can include: Diabetes. High blood pressure. Viral infection of the heart. Heart attack. Coronary heart disease. RISK FACTORS You may be more likely to develop cardiomyopathy if you: Have a family history of cardiomyopathy or other heart problems. Are overweight or obese. Use illegal drugs. Abuse alcohol. Have diabetes. Have another disease that can cause cardiomyopathy as a complication. SIGNS AND SYMPTOMS Often, cardiomyopathy has no signs or symptoms. If you do have symptoms, they may include: Shortness of breath, especially during activity. Fatigue. An irregular heartbeat (arrhythmia). Dizziness, light-headedness, or fainting. Chest pain. Swelling in the lower leg or ankle. DIAGNOSIS Your health care provider may suspect cardiomyopathy based on your symptoms and medical history. Your health care provider will also do a physical exam. Other tests done may include: Blood tests. Imaging studies of your heart. These may be done using: X-rays to check if your heart is enlarged. Echocardiogram to show the size of your heart and how well it pumps. MRI. A test to record the electrical activity of your heart ( electrocardiogram or ECG). A test in which you wear a portable device (event monitor) to record your heart's electrical activity while you go about your day. A test to monitor your heart's activity while you exercise (stress test) . A procedure to check the blood pressure and blood flow in your heart( cardiac catheterization). Injection of dye into your arteries before imaging studies are taken ( angiogram). Removal of a sample of heart tissue (biopsy). The sample is examined for problems. TREATMENT Treatment depends on the type of cardiomyopathy you have and the severity of your symptoms. If you are not having any symptoms, you might not need treatment. If you need treatment, it may include: Lifestyle changes. Quit smoking, if you smoke. Maintain a healthy weight. Lose weight if directed by your health care provider. Eat a healthy diet. Include plenty of fruits, vegetables, and whole grains. Get regular exercise. Ask your health care provider to suggest some activities that are good for you. Medicine. You may need to take medicine to: Lower your blood pressure. Slow down your heart rate. Keep your heart beating in a steady rhythm. Clear excess fluids from your body. Prevent blood clots. Surgery. You may need surgery to: Repair a defect. Remove thickened tissue. Implant a device to treat serious heart rhythm problems (implantable cardioverter-defibrillator or ICD). Replace your heart (heart transplant) if all other treatments have failed (end stage). HOME CARE INSTRUCTIONS Take medicines only as directed by your health care provider. Eat a heart-healthy diet. Work with your health care provider or a registered dietitian to learn about healthy eating options. Maintain a healthy weight and stay physically active. Do not use any tobacco products, including cigarettes, chewing tobacco, or electronic cigarettes. If you need help quitting, ask your health care provider. Work closely with your health care provider to manage chronic conditions , such as diabetes and high blood pressure. Limit alcohol intake to no more than one drink per day for non women and no more than two drinks per day for men. One drink equals 12 ounces of beer, 5 ounces of wine, or 1 ounces of hard liquor. Try to get at least 7 hours of sleep each night. Find ways to manage stress. Keep all follow-up visits as directed by your health care provider. This is important. SEEK MEDICAL CARE IF: Your symptoms get worse, even after treatment. You have new symptoms. SEEK IMMEDIATE MEDICAL CARE IF: You have severe chest pain. You have shortness of breath. You cough up pink, bubbly material. You have sudden sweating. You feel nauseous and vomit. You suddenly become light-headed or dizzy. You feel your heart beating very fast. It feels like your heart is skipping beats. These symptoms may represent a serious problem that is an emergency. Do not wait to see if the symptoms will go away. Get medical help right away. Call your local emergency services (911 in the [place] Do not drive yourself to the hospital. This information is not intended to replace advice given to you by your health care provider. Make sure you discuss any questions you have with your health care provider. Document Released: 01/05/2006 Document Revised: 11/13/2015 Document Reviewed: [employer] Patient Education 2016 [employer] No follow up information was provided. Referrals to Other Providers Referred by: Guille Bird MD
--- OUTSIDE RECORDS SUMMARY | 2017-01-19 01:10 | XMS REPORT | Referral Summary ---
Author Author [facility] Organization [facility] Address Unknown Phone Unavailable Care Team Providers Care Project Systems Engineer Name Role Phone Jatin Hancock Primary Care Physician [phone] Encounter [facility] Date(s): 08/17/16 - 08/17/16 [facility] [address] [place], [place] [address] Discharge Disposition: 01-Home or Self Care Attending Physician: Dave Donis MD Admitting Physician: Dave Donis MD Vital Signs Most recent to 1 oldest [Reference Range]: Peripheral Pulse 70 bpm Rate [60-100 bpm] (08/17/16 11:24 AM) Blood Pressure 142/84 mmHg [90-140/60-90 mmHg] *HI* (08/17/16 11:24 AM) Problem List Condition Effective Dates Status Health Status Informant Adult-onset Active obesity(Confirmed) Afib(Confirmed) Active Benign essential Active hypertension(Confirm ed) Pacemaker(Confirmed) Active patient Cardiomyopathy(Confi Active rmed) Combined form of Active senile cataract(Confirmed) Arrhythmia(Confirmed Active ) CHF (congestive Active heart failure)(Confirmed) CAD (coronary artery Active disease)(Confirmed) Generalized Active osteoarthritis(Confi rmed) Diabetes Active uncontrolled, ophth NT ST(Confirmed) Dyslipidemia(Confirm Active ed) Hx of amiodarone Active therapy(Confirmed) Anticoagulation Active adequate(Confirmed) AICD (automatic Active patient cardioverter/defibri llator) present(Confirmed) Heart Active disease(Confirmed) Erectile Active dysfunction(Confirme d) Irregular heart Active rhythm(Confirmed) Macular Active edema(Confirmed) Proliferative Active diabetic retinopathy(Confirme d) PDR (proliferative [...] DAY, # 30 tabs, 5 Refill(s), eRx: [facility] #[id number], TAKE ONE TABLET BY MOUTH EVERY DAY Start Date: 06/20/16 Status: Ordered aspirin 81 mg, Oral, Daily, 0 Refill(s) Start Date: 08/11/16 Status: Ordered Centrum Silver 1 tabs, Oral, Daily, 0 Refill(s) Start Date: 04/09/14 Status: Ordered digoxin 250 mcg (0.25 mg) oral tablet See Instructions, TAKE ONE TABLET BY MOUTH EVERY DAY, # 90 tabs, eRx: [facility] #[id number], TAKE ONE TABLET BY MOUTH EVERY DAY Start Date: 08/11/16 Status: Ordered Flomax 0.4 mg oral capsule 0.4 mg 1 caps, Oral, Daily, # 30 caps, 2 Refill(s), Pharmacy: [facility] # [id number], 1 caps Oral Daily Start Date: 03/19/15 Status: Ordered FREESTYLE LITE TEST STRIP See Instructions, CHECK BLOOD SUGAR THREE TIMES A DAY, # 100 strip, 4 Refill(s) , eRx: [facility] #[id number], CHECK BLOOD SUGAR THREE TIMES A DAY Start Date: 05/17/16 Status: Ordered FREESTYLE LITE TEST STRIP See Instructions, CHECK BLOOD SUGAR THREE TIMES A DAY, # 100 strip, 5 Refill(s) , eRx: [facility] #[id number], CHECK BLOOD SUGAR THREE TIMES A DAY Start Date: 09/07/15 Status: Ordered furosemide 80 mg oral tablet See Instructions, TAKE ONE TABLET BY MOUTH DAILY, # 90 tabs, 1 Refill(s), eRx: [facility] #[id number], TAKE ONE TABLET BY MOUTH DAILY Start Date: 05/17/16 Status: Ordered Glucometer strips (DME) DME Item freestyle lite test strips check bs tid, See Instructions, # 100 Each , 6 Refill(s), Pharmacy: [facility] #[id number], freestyle lite test strips; check bs tid, Supply Start Date: 11/03/14 Status: Ordered insulin syringe, strips, flexpen insulin syringe, strips, flexpen, 0 Refill(s) Start Date: 04/09/14 Status: Ordered Klor-Con M20 oral tablet, extended release See Instructions, TAKE TWO TABLETS BY MOUTH EVERY MORNING AND ONE TABLET BY MOUTH EVERY NIGHT AT BEDTIME, # 150 tabs, eRx: [facility] #[id number], TAKE TWO TABLETS BY MOUTH EVERY MORNING AND ONE TABLET BY MOUTH EVERY NIGHT AT BEDTIME Start Date: 08/11/16 Status: Ordered KRO PEN NEEDLES 31G 6MM See Instructions, INJECT 5 TIMES DAILY, # 500 unknown unit, 2 Refill(s), eRx: [facility] #[id number], INJECT 5 TIMES DAILY Start Date: 01/19/16 Status: Ordered Lantus Solostar Pen 100 units/mL subcutaneous solution See Instructions, INJECT 52 UNITS SUB-Q IN THE MORNING AND 50 UNITS AT NIGHT, # 45 unknown unit, 11 Refill(s), eRx: [facility] #[id number], INJECT 52 UNITS SUB-Q IN THE MORNING AND 50 UNITS AT NIGHT Start Date: 11/23/15 Status: Ordered lisinopril 20 mg oral tablet See Instructions, TAKE ONE TABLET BY MOUTH TWICE A DAY, # 180 tabs, eRx: [facility] #[id number], TAKE ONE TABLET BY MOUTH TWICE A DAY Start Date: 05/31/16 Status: Ordered magnesium oxide 400 mg, Oral, Daily, 0 Refill(s) Start Date: 07/25/14 Status: Ordered Metoprolol Tartrate 100 mg oral tablet See Instructions, TAKE ONE AND ONE-HALF TABLETS BY MOUTH EVERY MORNING, AND ONE TABLET IN THE EVENING, # 225 tabs, eRx: [facility] #[id number], TAKE ONE AND ONE-HALF TABLETS BY MOUTH EVERY MORNING, AND ONE TABLET IN THE EVENING Start Date: 07/29/16 Status: Ordered Ortley 10 mg-325 mg oral tablet 1 tabs, Oral, q6hr, as needed for pain, # 60 tabs, 0 Refill(s) Start Date: 07/21/16 Status: Ordered NovoLOG FlexPen 100 units/mL subcutaneous solution See Instructions, INJECT 9 UNITS SUBCUTANEOUSLY BEFORE BREAKFAST, 17-22 UNITS BEFORE LUNCH, AND 28-38 UNITS BEFORE DINNER., # 30 unknown unit, 4 Refill(s), eRx: [facility] #[id number], INJECT 9 UNITS SUBCUTANEOUSLY BEFORE BREAKFAST, 17-22 UNITS BEFO... Start Date: 07/21/16 Status: Ordered omeprazole 20 mg oral delayed release tablet 20 mg 1 tabs, Oral, Daily, 0 Refill(s) Start Date: 08/11/16 Status: Ordered Pradaxa 150 mg oral capsule See Instructions, TAKE ONE CAPSULE BY MOUTH TWICE A DAY, # 180 caps, eRx: [facility] #[id number], TAKE ONE CAPSULE BY MOUTH TWICE A DAY Start Date: 07/08/16 Status: Ordered rosuvastatin 20 mg oral tablet See Instructions, TAKE ONE-HALF TABLET BY MOUTH DAILY, # 15 tabs, eRx: [facility] #[id number], TAKE ONE-HALF TABLET BY MOUTH DAILY Start Date: 08/15/16 Status: Ordered spironolactone 50 mg oral tablet 50 mg 1 tabs, Oral, BID, # 60 tabs, 3 Refill(s), Pharmacy: [facility] # [id number], 1 tabs Oral BID Start Date: 06/07/16 Status: Ordered Viagra 100 mg oral tablet 1 tabs, Oral, Daily, as needed 1 hour prior to intercourse, # 10 tabs, 0 Refill( s), Pharmacy: [facility] #[id number], 1 tabs Oral Daily,PRN:as needed 1 hour prior to intercourse Start Date: 07/30/14 Status: Ordered Victoza 18 mg/3 mL subcutaneous solution See Instructions, DIAL AND INJECT SUBCUTANEOUSLY 1.8MG DAILY, # 9 unknown unit, 4 Refill(s), eRx: [facility] #[id number], DIAL AND INJECT SUBCUTANEOUSLY 1.8MG DAILY Start Date: 07/12/16 Status: Ordered Results No data available for this section Immunizations Vaccine Date Refusal Reason tetanus/diphth/pertuss (Tdap) adult/adol 05/13/15 influenza virus vaccine, inactivated1 08/10/16 influenza virus vaccine, inactivated 07/30/14 influenza virus vaccine, live 09/03/13 influenza virus vaccine, live 08/30/12 pneumococcal 23-polyvalent vaccine 08/21/03 1Location History: given at [facility] Procedures Procedure Date Related Diagnosis Body Site Colonoscopy: polyps (3), tubular adenoma 07/06/07 Implantable defibrillator Implantation of heart pacemaker - single chamber Social History Social History Type Response Smoking Status Never smoker Assessment and Plan No data available for this section
--- OUTSIDE RECORDS SUMMARY | 2017-01-19 01:10 | XMS REPORT | Referral Summary ---
Author Author [facility] [employer] Organization [facility] [employer] Address Unknown Phone Unavailable Care Team Providers Care Forgesmith Name Role Phone Jatin Hancock Primary Care Physician [phone] Encounter [facility] [phone] Date(s): 12/22/16 - 12/22/16 [facility] [email or web address] [facility] [address] [place], [place] [address] Discharge Diagnosis: Periodic limb movements of sleep Discharge Diagnosis: DUYEN on CPAP Discharge Diagnosis: Morbid obesity Discharge Diagnosis: CHF (congestive heart failure) Discharge Disposition: 01-Home or Self Care Attending Physician: Fuad Gordon MD Admitting Physician: Fuad Gordon MD Vital Signs Most recent to 1 oldest [Reference Range]: Peripheral Pulse 70 bpm Rate [60-100 bpm] (12/22/16 1:06 PM) Blood Pressure 120/60 mmHg [90-140/60-90 mmHg] (12/22/16 1:06 PM) Problem List Condition Effective Dates Status Health [...] DAY, # 30 tabs, 5 Refill(s), eRx: [facility] #[id number], TAKE ONE TABLET BY MOUTH EVERY DAY Start Date: 06/20/16 Status: Ordered aspirin 81 mg, Oral, Daily, 0 Refill(s) Start Date: 08/11/16 Status: Ordered Centrum Silver 1 tabs, Oral, Daily, 0 Refill(s) Start Date: 04/09/14 Status: Ordered digoxin 250 mcg (0.25 mg) oral tablet See Instructions, TAKE ONE TABLET BY MOUTH EVERY DAY, # 90 tabs, eRx: [facility] #[id number], TAKE ONE TABLET BY MOUTH EVERY DAY Start Date: 08/11/16 Status: Ordered Entresto 49 mg-51 mg oral tablet 1 tabs, Oral, BID, # 60 tabs, 0 Refill(s), samples given to patient (Rx) Start Date: 11/30/16 Status: Ordered Freestyle lite test strips Freestyle lite test strips, See Instructions, 100 strips check blood sugar 3x/ day dx:E11.9, # 100 Each, 0 Refill(s), Pharmacy: [facility] #[id number], 100 strips check blood sugar 3x/day; dx:E11.9 Start Date: 12/20/16 Status: Ordered furosemide 80 mg oral tablet See Instructions, TAKE ONE TABLET BY MOUTH DAILY, # 90 tabs, 1 Refill(s), eRx: [facility] #[id number], TAKE ONE TABLET BY MOUTH DAILY Start Date: 05/17/16 Status: Ordered Klor-Con M20 oral tablet, extended release See Instructions, TAKE TWO TABLETS BY MOUTH EVERY MORNING AND ONE TABLET BY MOUTH EVERY NIGHT AT BEDTIME, # 150 tabs, 0 Refill(s), Pharmacy: [facility] #[id number], TAKE TWO TABLETS BY MOUTH EVERY MORNING AND ONE TABLET BY MOUTH EVERY NIGHT AT BED... Start Date: 11/02/16 Status: Ordered KRO PEN NEEDLES 31G 6MM See Instructions, INJECT 5 TIMES DAILY, # 500 unknown unit, 2 Refill(s), eRx: [facility] #[id number], INJECT 5 TIMES DAILY Start Date: 01/19/16 Status: Ordered Lantus Solostar Pen 100 units/mL subcutaneous solution See Instructions, INJECT 52 UNITS SUB-Q IN THE MORNING AND 50 UNITS AT NIGHT, # 45 unknown unit, 11 Refill(s), eRx: [facility] #[id number], INJECT 52 UNITS SUB-Q IN THE MORNING AND 50 UNITS AT NIGHT Start Date: 11/23/15 Status: Ordered magnesium oxide 400 mg, Oral, Daily, as needed, 0 Refill(s) Start Date: 07/25/14 Status: Ordered Metoprolol Tartrate 100 mg oral tablet See Instructions, TAKE ONE AND ONE-HALF TABLETS BY MOUTH EVERY MORNING, AND ONE TABLET IN THE EVENING, # 225 tabs, eRx: [facility] #[id number] Start Date: 10/28/16 Status: Ordered Evart 10 mg-325 mg oral tablet 1 tabs, Oral, q6hr, as needed for pain, May fill 12/17/16, # 60 tabs, 0 Refill(s) Start Date: 12/12/16 Status: Ordered NovoLOG FlexPen 100 units/mL subcutaneous solution See Instructions, INJECT 9 UNITS SUBCUTANEOUSLY BEFORE BREAKFAST, 17-22 UNITS BEFORE LUNCH, AND 28-38 UNITS BEFORE DINNER., # 30 unknown unit, 4 Refill(s), eRx: [facility] #[id number], INJECT 9 UNITS SUBCUTANEOUSLY BEFORE BREAKFAST, 17-22 UNITS BEFO... Start Date: 07/21/16 Status: Ordered omeprazole 20 mg oral delayed release capsule See Instructions, TAKE ONE CAPSULE BY MOUTH DAILY BEFORE BREAKFAST, # 30 caps, 2 Refill(s), eRx: [facility] #[id number] Start Date: 12/19/16 Status: Ordered Pradaxa 150 mg oral capsule See Instructions, TAKE ONE CAPSULE BY MOUTH TWICE A DAY, # 180 caps, eRx: [facility] #[id number], TAKE ONE CAPSULE BY MOUTH TWICE A DAY Start Date: 10/12/16 Status: Ordered rosuvastatin 20 mg oral tablet See Instructions, TAKE ONE-HALF TABLET BY MOUTH DAILY, # 15 tabs, 3 Refill(s), eRx: [facility] #[id number] Start Date: 12/06/16 Status: Ordered spironolactone 50 mg oral tablet See Instructions, TAKE ONE TABLET BY MOUTH TWICE A DAY, # 60 tabs, 5 Refill(s), eRx: [facility] #[id number], TAKE ONE TABLET BY MOUTH TWICE A DAY Start Date: 10/06/16 Status: Ordered tamsulosin 0.4 mg oral capsule See Instructions, TAKE ONE CAPSULE BY MOUTH DAILY, # 30 caps, 1 Refill(s), eRx: [facility] #[id number] Start Date: 11/28/16 Status: Ordered Viagra 100 mg oral tablet 1 tabs, Oral, Daily, as needed 1 hour prior to intercourse, # 10 tabs, 0 Refill( s), Pharmacy: [facility] #[id number], 1 tabs Oral Daily,PRN:as needed 1 hour prior to intercourse Start Date: 07/30/14 Status: Ordered Victoza 18 mg/3 mL subcutaneous solution See Instructions, DIAL AND INJECT SUBCUTANEOUSLY 1.8MG DAILY, # 9 unknown unit, 4 Refill(s), eRx: [facility] #[id number], DIAL AND INJECT SUBCUTANEOUSLY 1.8MG DAILY Start [...] vaccine 08/21/03 Given 1Location History: given at [facility] [place] Procedures Procedure Date Related Diagnosis Body Site Colonoscopy: polyps (3), tubular adenoma 07/06/07 Implantable defibrillator Implantation of heart pacemaker - single chamber Social History Social History Type Response Smoking Status Never smoker Assessment and Plan Extracted from: Title: Ambulatory Patient Education Author: Fuad Gordon MD Date: 12/22/16 ENT Sleep Apnea Sleep apnea is a [...] Released: 10/13/2003 Document Revised: 11/13/2015 Document Reviewed: [employer] Patient Education 2016 [employer] No follow up information was provided. Extracted from: Title: Sleep Med Follow-up Office Author: Fuad Gordon MD Date: 12/22/16 Note Impression and Plan Diagnosis CHF (congestive heart failure) ([id number]-DO I50.9, Discharge, Medical). Periodic limb movements of sleep (JYB61-JO G47.61, Discharge, Medical). Morbid obesity (KHJ39-BT E66.01, Discharge, Medical). DUYEN on CPAP (VAD82-SG G47.33, Discharge, Medical). Dx/Order Association Plan: Diagnosis: 1. DUYEN on CPAP Comment: DUYEN, severe, on CPAP therapy with fair adherence Has had at least 30 lb weight gain since last tested in 2001 He has been admitted to hospital for what sounds like CHF exacerbation, and had colds symptoms, affecting adherence data He is symptomatically improved on his current CPAP settings with fair adherence. He does not have any significant issues with CPAP use. Mask leak is insignificant--he does not have symptoms. He describes symptomatic benefit from using the CPAP device. I encouraged him to continue using the CPAP device more often and for longer periods of time (e.g. all sleep, including naps). The residual DUYEN as estimated by the CPAP device (residual AHI) was negligible. Based on CPAP usage download data, I will have RT change his auto-CPAP settings to auto-CPAP 8-14 cm H20. We discussed the proper use and care of the CPAP device and mask. He understands that weight gain and aging can increase the severity of the sleep- disordered breathing. On the contrary, weight loss leads to improvement in DUYEN, in general. He understands that driving while sleepy increases the risk of motor vehicle accidents. Diagnosis: 2. Morbid obesity Comment: Reminded about weight loss Diagnosis: 3. Periodic limb movements of sleep Comment: PSG finding--patient asymptomatic Will not treat at this time Diagnosis: 4. CHF (congestive heart failure) Comment: Pt still will need nocturnal oximetry on auto-CPAP 8-14 cm H20 (RA) when more established on CPAP use to ensure adequate oxygenation. RTC 2-3 mo with [facility] for follow-up and adherence check. Still need adherence check for insurance purposes. .
--- OUTSIDE RECORDS SUMMARY | 2017-01-19 01:10 | XMS REPORT | Referral Summary ---
Author Author [facility] Organization [facility] Address Unknown Phone Unavailable Care Team Providers Care Menswear Salesperson Name Role Phone Jatin Hancock Primary Care Physician [phone] Encounter [facility] [id number] Date(s): 12/02/16 - 12/02/16 [facility], [address] [place] [address] Discharge Diagnosis: DM (diabetes mellitus), type 2 with ophthalmic complications Discharge Diagnosis: Dyslipidemia Discharge Diagnosis: CAD (coronary artery disease) Discharge Diagnosis: CHF (congestive heart failure) Discharge Diagnosis: Afib Discharge Diagnosis: DUYEN (obstructive sleep apnea) Discharge Disposition: 01-Home or Self Care Attending Physician: Kaylynn Dias PA-C Admitting Physician: Kaylynn Dias PA-C Vital Signs Most recent to 1 oldest [Reference Range]: Temperature Tympanic 35.4 degC [36.6-38.1 degC] *LOW* (12/02/16 8:02 AM) Peripheral Pulse 72 bpm Rate [60-100 bpm] (12/02/16 8:02 AM) Blood Pressure 134/80 mmHg [90-140/60-90 mmHg] (12/02/16 8:02 AM) Problem List Condition Effective Dates Status [...] DAY, # 30 tabs, 5 Refill(s), eRx: [facility] #[id number], TAKE ONE TABLET BY MOUTH EVERY DAY Start Date: 06/20/16 Status: Ordered aspirin 81 mg, Oral, Daily, 0 Refill(s) Start Date: 08/11/16 Status: Ordered Centrum Silver 1 tabs, Oral, Daily, 0 Refill(s) Start Date: 04/09/14 Status: Ordered digoxin 250 mcg (0.25 mg) oral tablet See Instructions, TAKE ONE TABLET BY MOUTH EVERY DAY, # 90 tabs, eRx: [facility] #[id number], TAKE ONE TABLET BY MOUTH EVERY DAY Start Date: 08/11/16 Status: Ordered Entresto 49 mg-51 mg oral tablet 1 tabs, Oral, BID, # 60 tabs, 0 Refill(s), samples given to patient (Rx) Start Date: 11/30/16 Status: Ordered FREESTYLE LITE TEST STRIP See Instructions, CHECK BLOOD SUGAR THREE TIMES A DAY, # 100 strip, 4 Refill(s) , eRx: [facility] #[id number], CHECK BLOOD SUGAR THREE TIMES A DAY Start Date: 05/17/16 Status: Ordered FREESTYLE LITE TEST STRIP See Instructions, CHECK BLOOD SUGAR THREE TIMES A DAY, # 100 strip, 5 Refill(s) , eRx: [facility] #[id number], CHECK BLOOD SUGAR THREE TIMES A DAY Start Date: 09/07/15 Status: Ordered furosemide 80 mg oral tablet See Instructions, TAKE ONE TABLET BY MOUTH DAILY, # 90 tabs, 1 Refill(s), eRx: [facility] #[id number], TAKE ONE TABLET BY MOUTH DAILY Start Date: 05/17/16 Status: Ordered Glucometer strips (DME) DME Item freestyle lite test strips check bs tid, See Instructions, # 100 Each , 6 Refill(s), Pharmacy: [facility] #[id number], freestyle lite test strips; check bs tid, Supply Start Date: 11/03/14 Status: Ordered insulin syringe, strips, flexpen insulin syringe, strips, flexpen, 0 Refill(s) Start Date: 04/09/14 Status: Ordered Klor-Con M20 oral tablet, extended release See Instructions, TAKE TWO TABLETS BY MOUTH EVERY MORNING AND ONE TABLET BY MOUTH EVERY NIGHT AT BEDTIME, # 150 tabs, 0 Refill(s), Pharmacy: [facility] #[id number], TAKE TWO TABLETS BY MOUTH EVERY MORNING AND ONE TABLET BY MOUTH EVERY NIGHT AT BED... Start Date: 11/02/16 Status: Ordered KRO PEN NEEDLES 31G 6MM See Instructions, INJECT 5 TIMES DAILY, # 500 unknown unit, 2 Refill(s), eRx: [facility] #[id number], INJECT 5 TIMES DAILY Start Date: 01/19/16 Status: Ordered Lantus Solostar Pen 100 units/mL subcutaneous solution See Instructions, INJECT 52 UNITS SUB-Q IN THE MORNING AND 50 UNITS AT NIGHT, # 45 unknown unit, 11 Refill(s), eRx: [facility] #[id number], INJECT 52 UNITS SUB-Q IN THE MORNING AND 50 UNITS AT NIGHT Start Date: 11/23/15 Status: Ordered magnesium oxide 400 mg, Oral, Daily, as needed, 0 Refill(s) Start Date: 07/25/14 Status: Ordered Metoprolol Tartrate 100 mg oral tablet See Instructions, TAKE ONE AND ONE-HALF TABLETS BY MOUTH EVERY MORNING, AND ONE TABLET IN THE EVENING, # 225 tabs, eRx: [facility] #[id number] Start Date: 10/28/16 Status: Ordered Chapman 10 mg-325 mg oral tablet 1 tabs, Oral, q6hr, as needed for pain, # 60 tabs, 0 Refill(s) Start Date: 11/17/16 Status: Ordered NovoLOG FlexPen 100 units/mL subcutaneous solution See Instructions, INJECT 9 UNITS SUBCUTANEOUSLY BEFORE BREAKFAST, 17-22 UNITS BEFORE LUNCH, AND 28-38 UNITS BEFORE DINNER., # 30 unknown unit, 4 Refill(s), eRx: [facility] #[id number], INJECT 9 UNITS SUBCUTANEOUSLY BEFORE BREAKFAST, 17-22 UNITS BEFO... Start Date: 07/21/16 Status: Ordered omeprazole 20 mg oral delayed release capsule See Instructions, TAKE ONE CAPSULE BY MOUTH DAILY BEFORE BREAKFAST, # 30 caps, eRx: [facility] #[id number] Start Date: 11/04/16 Status: Ordered Pradaxa 150 mg oral capsule See Instructions, TAKE ONE CAPSULE BY MOUTH TWICE A DAY, # 180 caps, eRx: [facility] #[id number], TAKE ONE CAPSULE BY MOUTH TWICE A DAY Start Date: 10/12/16 Status: Ordered rosuvastatin 20 mg oral tablet See Instructions, TAKE ONE-HALF TABLET BY MOUTH DAILY, # 15 tabs, 0 Refill(s), Pharmacy: [facility] #[id number], TAKE ONE-HALF TABLET BY MOUTH DAILY Start Date: 11/02/16 Status: Ordered spironolactone 50 mg oral tablet See Instructions, TAKE ONE TABLET BY MOUTH TWICE A DAY, # 60 tabs, 5 Refill(s), eRx: [facility] #[id number], TAKE ONE TABLET BY MOUTH TWICE A DAY Start Date: 10/06/16 Status: Ordered tamsulosin 0.4 mg oral capsule See Instructions, TAKE ONE CAPSULE BY MOUTH DAILY, # 30 caps, 1 Refill(s), eRx: [facility] #[id number] Start Date: 11/28/16 Status: Ordered Viagra 100 mg oral tablet 1 tabs, Oral, Daily, as needed 1 hour prior to intercourse, # 10 tabs, 0 Refill( s), Pharmacy: [facility] #[id number], 1 tabs Oral Daily,PRN:as needed 1 hour prior to intercourse Start Date: 07/30/14 Status: Ordered Victoza 18 mg/3 mL subcutaneous solution See Instructions, DIAL AND INJECT SUBCUTANEOUSLY 1.8MG DAILY, # 9 unknown unit, 4 Refill(s), eRx: [facility] #[id number], DIAL AND INJECT SUBCUTANEOUSLY 1.8MG DAILY Start [...] vaccine 08/21/03 Given 1Location History: given at [facility] [place] Procedures Procedure Date Related Diagnosis Body Site Colonoscopy: polyps (3), tubular adenoma 07/06/07 Implantable defibrillator Implantation of heart pacemaker - single chamber Social History Social History Type Response Smoking Status Never smoker Assessment and Plan Extracted from: Title: Office Visit Note- Hospital Author: Kaylynn Dias PA-C Date : 12/02/16 F/u- CHF Assessment/Plan Afib Sees Dr. Bird. On Pradaxa and Amiodarone. Ordered: [facility] 7 Day Disch [id number] CAD (coronary artery disease) SeeKarthikeyan. Nuclear stress test done08/17/2016. Ordered: [facility] 7 Day Disch [id number] CHF (congestive heart failure) Feeling much better at this time. Back to his baseline of mild NOVAK. Again, sees [facility]. He had BMP and BNP checked at his appt earlier this week. Started on Entresto. Contact cardiology if any concerns with medication. He is to continue to monitor weight and immediately report any significant increase and any increased SOA. He is to also limit his fluids to 2 quarts daily, and limit sodium intake. Try to keep legs elevated. We briefly talked about wearing compression hose for peripheral edema. May try OTC first, but may need prescription/measured hose. Ordered: [facility] 7 Day Disch [id number] DM (diabetes mellitus), type 2 with ophthalmic complications Continue toche blood sugars.Needs A1C.D/w pt that he needs to make medication check with Dr. Hancock to have lab done and discuss medication. Ordered: [facility] 7 Day Disch [id number] Dyslipidemia Continue on Crestor. Lipids checked 03/07/16. Ordered: [facility] 7 Day Disch [id number] DUYEN (obstructive sleep apnea) More willing to use CPAP with new machine/mask. Continue to f/u with sleep medicine. Ordered: [facility] 7 Day Disch [id number]
--- OUTSIDE RECORDS SUMMARY | 2017-01-19 01:11 | XMS REPORT | Continuity of Care Document ---
Author Author [facility] Organization [facility] Address Unknown Phone Unavailable Care Team Providers Care Cardiac Surgeon Name Role Phone MANSOOR CHAPPELL MD Primary Care Physician [phone] Insurance Providers Guarantor Fito Walters Address [address] [place] [address] Email DENIED/NO TO [facility] Healthcare Policy Number [id number] Subscriber's Name Fito Walters Relationship 18 Self Group Number [id number] Advance Directives Directive Response Recorded Date/Time Advanced Directives Type None 11/23/16 4:45pm Ordered Resuscitation Status Full Code 11/23/16 6:31pm DPOA for Healthcare Only No 11/23/16 7:49pm Living Will No 11/23/16 7:49pm Problems Active Problems Medical Problem Onset Date Status Acute on chronic systolic (congestive) heart failure Unknown Acute Acute respiratory failure with hypoxia and hypercapnia Unknown Resolved Afib Unknown Chronic Anticoagulation adequate with anticoagulant therapy Unknown Chronic Atrial fibrillation Unknown BPH (benign prostatic hyperplasia) ~11/2016 Chronic CHF (congestive heart failure) Unknown Acute DM2 (diabetes mellitus, type 2) Unknown Chronic Dyspnea Unknown Acute GERD (gastroesophageal reflux disease) Unknown Chronic HTN (hypertension) Unknown Chronic Hyperlipidemia Unknown Chronic Morbid obesity Unknown Chronic NICM (nonischemic cardiomyopathy) Unknown Chronic DUYEN (obstructive sleep apnea) Unknown Chronic DUYEN (obstructive sleep apnea) Unknown Chronic Obesity Unknown Chronic Pulmonary edema Unknown Resolved Type II diabetes mellitus Unknown Chronic Upper respiratory infection Unknown Acute Past Problems Medical Problem Onset Date Chest pain Unknown Defibrillator discharge Unknown Medications Current Home Medications Medication Dose Units Route Directions Days Qty Instructions Start Date Acetaminophen 325 Mg Tablet 650 Mg Oral Every 4 Hours as needed for Pain 03/15/16 Amiodarone Hcl 200 Mg Tablet 200 Mg Oral Daily 03/15/16 Aspirin 81 Mg Tab.chew 81 Mg Oral Daily 11/23/16 Dabigatran Etexilate Mesylate (Pradaxa) 150 Mg Capsule 150 Mg Oral Twice A Day 03/15/16 Digoxin 250 Mcg Tablet 125 Mcg Oral Daily 01/08/09 Furosemide (Lasix) 80 Mg Tablet 40 Mg Oral Daily 01/08/09 Hydrocodone/Acetaminophen ([place] 10-325 Tablet) 1 Each Tablet 1 Tab Oral Every 6 Hours as needed for Pain 03/15/16 Insulin Glargine,Hum.rec.anlog (Lantus Solostar) 1 Unit Pen 50 Unit Sub-Q Daily Morning Insulin 03/15/16 Insulin Glargine,Hum.rec.anlog (Lantus Solostar) 1 Unit Pen 45 Unit Sub-Q Bedtime 08/09/16 Insulin Lispro (Humalog) 100 Unit/1 Ml Cartridge 1 Dose Sub-Q Sliding Scale as needed for Blood Sugar > 250 08/09/16 Liraglutide (Victoza 3-Paul) 0.6 Mg/0.1 Ml Pen.injctr 1.8 Mg Sub-Q Daily 03/15/16 Magnesium Oxide 400 Mg Tablet 400 Mg Oral Daily 03/15/16 Metoprolol Tartrate 100 Mg Tablet 150 Mg Oral Twice A Day Multivits-Min/Fa/Lycopene/Lut (Centrum Silver Tablet) 1 Each Tablet 1 Tab Oral Daily 03/15/16 Omeprazole 20 Mg Tablet.dr 20 Mg Oral Before Breakfast 11/23/16 Potassium Chloride 20 Meq Tablet.er 20 Meq Oral Three Times A Day 03/15/16 Rosuvastatin Calcium (Crestor) 20 Mg Tablet 10 Mg Oral Bedtime Spironolactone 50 Mg Tablet 50 Mg Oral Twice A Day 03/15/16 Tamsulosin Hcl (Flomax) 0.4 Mg Capsule 0.4 Mg Oral Bedtime Social History Social History Problem Response Recorded Date/Time Onset Date Status Reason for Hospitalization Acute respiratory failure 11/25/2016 2:15pm Not Applicable Not Applicable Hx Substance Use No 11/23/2016 5:04pm Not Applicable Not Applicable Hx Alcohol Use No 11/23/2016 5:04pm Not Applicable Not Applicable Has the pt used tobacco in the last 12 months No 11/23/2016 7:51pm Not Applicable Not Applicable Tobacco Usage none 05/11/2015 3:09am Not Applicable Not Applicable Query Response Start Date Stop Date Smoking Status Never smoker Hospital Discharge Instructions Instructions: Care Instructions: Reason for Hospitalization: Acute respiratory failure I was in the hospital because (patient own words): "BREATHING PROBLEMS" Discharge Diet: 2200 KCAL ADA, 2 Gram sodium, may have up to 2 quarts fluid a day Discharge Activity: As tolerated - return to work on 11/30 Follow Up Appointments: Dr Chappell in 1 week - Check BMP at that time SEE ASNDEEP GARCIA ON MondayNovember AT 10:[address] MISTI GARCIA [phone] Pending Lab / Results: No Pending Lab Patient Instructions: Daily weights Use 80mg Lasix the next 2 days, then decrease to 40. May use additional Lasix with 2.5 pound weight gain over 2 days or significant increase of leg swelling. Wound/Incision Care: n/a Pain Scale Utilized to Educate Patient: 0-10 Pain Scale Pain Management/Treatment: Tylenol as needed Expected Signs/Symptoms: Improvement of breathing Notify Physician If: Chest pain. Increasing difficulty breathing. During Business Hours:: Please call the physician's office at After Business Hours:: Please call [phone] and have the boat ride operator page the physician. Condition at time of discharge: Good Plan of Care Discharge Date 11/25/16 2:30pm Disposition 01 DISCHARGED HOME, SELF-CARE Instructions/Education Provided [facility] Congestive Heart Failure Prescriptions See Medication Section Care Plan and Goals See Discharge Instructions Section Functional Status Query Response Date Recorded Mobility Status Ambulatory November 25, 2016 2:15pm Assistive Devices None November 25, 2016 2:15pm Activity Limitations None November 25, 2016 2:15pm Feeding Ability Independent November 25, 2016 2:15pm Toileting Ability Independent November 25, 2016 2:15pm Grooming Ability Independent November 25, 2016 2:15pm Dressing Ability Independent November 25, 2016 2:15pm Driving Ability Independent November 25, 2016 2:15pm Housework Ability Independent November 25, 2016 2:15pm Meal Preparation Ability Independent November 25, 2016 2:15pm Stair Climbing Ability Independent November 25, 2016 2:15pm Ability to complete ADL's impeded by No change November 25, 2016 2:15pm Cognitive/Perceptual Impairments Impaired vision November 25, 2016 2:15pm Visual Assistive Devices Glasses November 23, 2016 7:15pm Preferred Method of Learning Listening Hands on November 23, 2016 7:15pm Allergies, Adverse Reactions, Alerts No known allergies. Immunizations Query Response on File Recorded Date/Time Hx Influenza Vaccination Y Aug 2015 11/23/16 7:51pm Hx Pneumococcal Vaccination Y Aug 2015 11/23/16 7:51pm Hx Influenza Vaccination Y Aug 2015 11/23/16 7:51pm Influenza Vaccine Hx 08/10/16 11/24/16 1:46pm Vital Signs Acute Vital Signs Vital Response Date/Time Temperature (Fahrenheit) 98.1 deg F (96.8 - 99.1) 11/25/2016 7:26am Temperature (Calculated Celsius) 36.96347 degrees C (36.0 - 37.3) 11/25/2016 7:26am Pulse Rate (adult) 63 bpm (60 - 100) 11/25/2016 7:26am Respiratory Rate 16 breaths/min (10 - 20) 11/25/2016 7:26am O2 Sat by Pulse Oximetry 94 % (90 - 100) 11/25/2016 7:27am Oxygen Delivery Method Nasal Cannula 11/24/2016 11:46am Oxygen Delivery Method Room Air 11/25/2016 7:27am Oxygen Flow Rate 0.75 L/min 11/25/2016 7:26am Fraction of Inspired Oxygen (FIO2) 35 % 11/25/2016 2:06am Blood Pressure 126/74 mm Hg 11/25/2016 7:26am Blood Pressure Source Automatic Cuff 11/25/2016 7:26am Height (Feet) 5 feet 11/25/2016 1:55pm Height (Inches) 6.00 inches 11/25/2016 1:55pm Weight (Kilograms) 114.200 kg 11/25/2016 7:29am Body Mass Index (BMI) 42.1 11/23/2016 7:46pm Results Laboratory Results Test Name Result Units Flags Reference Collection Date/Time Result Date/ Time Comments White Blood Count 5.6 T/MM3 4.5-11.0 11/25/2016 4:33am 11/25/2016 5: 11am Red Blood Count 5.53 M/MM3 4.50-5.90 11/25/2016 4:11/25/2016 5: 11am Hemoglobin 14.6 GM/DL 13.5-17.5 11/25/2016 4:11/25/2016 5:11am Hematocrit 45.8 % 41-53 11/25/2016 4:11/25/2016 5:11am Mean Corpuscular Volume 82.8 UM3 80-100 11/25/2016 4:11/25/2016 5: 11am Mean Corpuscular Hemoglobin 26.4 UUG 26-34 11/25/2016 4:2016 5:11am Mean Corpuscular Hemoglobin Concent 31.9 GM/DL 31-37 11/25/2016 4:11/25/2016 5:11am RDW Standard Deviation 43.3 FL 36.9-50.2 11/25/2016 4:11/25/2016 5 :11am Platelet Count 138 T/MM3 130-400 11/25/2016 4:11/25/2016 5:11am Mean Platelet Volume 11.3 UM3 9.4-12.4 11/25/2016 4:11/25/2016 5: 11am Neutrophils (%) (Auto) 58.0 % 33-66 11/25/2016 4:11/25/2016 5: 11am Lymphocytes (%) (Auto) 31.5 % 23-45 11/25/2016 4:11/25/2016 5: 11am Monocytes (%) (Auto) 7.9 % 0-9.0 11/25/2016 4:11/25/2016 5:11am Eosinophils (%) (Auto) 2.2 % 0-4 11/25/2016 4:11/25/2016 5:11am Basophils (%) (Auto) 0.2 % 0-2 11/25/2016 4:11/25/2016 5:11am Immature Granulocyte % (Auto) 0.2 % 0.0-0.5 11/25/2016 4:2016 5:11am Absolute Neutrophils (auto) 3.2 T/MM3 1.8-7.7 11/25/2016 4:332016 5:11am Absolute Lymphocytes (auto) 1.8 T/MM3 1-4.8 11/25/2016 4:332016 5:11am Absolute Monocytes (auto) 0.4 T/MM3 0-0.8 11/25/2016 4:3311/25/2016 5:11am Absolute Eosinophils (auto) 0.1 T/MM3 0-0.5 11/25/2016 4:332016 5:11am Absolute Basophils (auto) 0.0 T/MM3 0-0.2 11/25/2016 4:3311/25/2016 5:11am Absolute Immature Granulocyte (auto 0.01 T/MM3 0.00-0.03 11/25/2016 4: 3311/25/2016 5:11am Icterus Index < 2 0-7 11/25/2016 4:3311/25/2016 5:30am Chemistry Specimen Hemolysis < 15 0-25 11/25/2016 4:3311/25/2016 5 :30am 0-25: Specimen Exhibited No Hemolysis. Turbidity < 20 0-20 11/25/2016 4:33am 11/25/2016 5:30am Sodium Level 144 MEQ/L 134-144 11/25/2016 4:3311/25/2016 5:30am Potassium Level 3.5 MEQ/L L 3.6-5 11/25/2016 4:3311/25/2016 5:30am Chloride Level 104 MEQ/L 98-107 11/25/2016 4:33am 11/25/2016 5:30am Carbon Dioxide Level 31 MEQ/L H 22-30 11/25/2016 4:33am 11/25/2016 5: 30am Anion Gap 9 MEQ/L 5-15 11/25/2016 4:33am 11/25/2016 5:30am Blood Urea Nitrogen 22.0 MG/DL H 9-11/25/2016 4:3311/25/2016 5: 30am Creatinine 1.1 MG/DL D 0.8-1.5 11/25/2016 4:33am 11/25/2016 5:32am BUN/Creatinine Ratio 20 RATIO 6-26 11/25/2016 4:33am 11/25/2016 5:30am Glomerular Filtration Rate Calc 68 11/25/2016 4:33am 11/25/2016 5: 30am Glucose Level 72 MG/DL L 75-110 11/25/2016 4:33am 11/25/2016 5:30am Calculated Osmolality 279 MOSM/KG 261-280 11/25/2016 4:33am 11/25/2016 5:30am Calcium Level 9.0 MG/DL 8.4-10.2 11/25/2016 4:33am 11/25/2016 5:30am Total Bilirubin 1.90 MG/DL H 0.20-1.30 11/23/2016 5:23pm 11/23/2016 5: 50pm Alkaline Phosphatase 66 U/L 38-126 11/23/2016 5:23pm 11/23/2016 5:50pm Total Protein 7.0 G/DL 6.3-8.2 11/23/2016 5:23pm 11/23/2016 5:50pm Albumin 4.2 G/DL 3.5-5.0 11/23/2016 5:23pm 11/23/2016 5:50pm Globulin 2.8 G/DL 2.4-3.6 11/23/2016 5:23pm 11/23/2016 5:50pm Albumin/Globulin Ratio 1.5 RATIO 1.1-2.2 11/23/2016 5:23pm 11/23/2016 5 :50pm Aspartate Amino Transf (AST/SGOT) 27 U/L 17-59 11/23/2016 5:23pm 2016 5:50pm Alanine Aminotransferase (ALT/SGPT) 29 U/L 21-72 11/23/2016 5:23pm 5:50pm Troponin I 0.036 ng/ml D 0-0.12 11/24/2016 4:23am 11/24/2016 6:15am Troponin values with a difference of 55% increase from orginal troponin value represent a true biological DELTA value. (%increase Calc=Orginal Troponin value, divided by subsequent Troponin value, multiplied by 100) WT-Jfq-V-Type Natriuretic Peptide 2040 PG/ML H 0-175 11/23/2016 5:24pm 11/23/2016 5:51pm Rule in cut points: <50 years old=450; 50-75 years old=900; >75 years old=1800; When utilizing ProBNP rule-in cut points, adjustment for impaired renal function is typically not required. Magnesium Level 1.7 MG/DL 1.6-2.3 11/24/2016 4:23am 11/24/2016 5:39am Plasma Lactate 1.5 MMOL/L 0.6-2.2 11/23/2016 5:24pm 11/23/2016 5:42pm Procalcitonin < 0.05 NG/ML 11/23/2016 5:24pm 11/23/2016 5:58pm PCT < /=0.5 ng/mL - sepsis not likely; PCT >0.5 and </=2 ng/mL - sepsis possible; PCT >2 ng/mL - sepsis likely; PCT >/=10 ng/mL - systemic inflammatory response - sepsis or septic shock highly indicated. Digoxin Level 0.4 NG/ML L 0.8-2.0 11/23/2016 5:20pm 11/23/2016 8:41pm Thyroid Stimulating Hormone (TSH) 1.01 MIU/L 0.47-4.68 11/24/2016 4: 23am 11/24/2016 6:04am Hemoglobin A1c 9.2 % H 6.1-7.9 11/24/2016 4:23am 11/24/2016 6:21am < 6.0 NON-DIABETIC RANGE 6.1-7.9 [employer] TARGET RANGE >8.0 ACTION SUGGESTED Arterial Blood pH 7.410 7.350-7.450 11/23/2016 6:20pm 11/23/2016 6: 30pm Arterial Blood Partial Pressure CO2 48 MMHG H 34-45 11/23/2016 6:20pm 6:30pm Arterial Blood pO2 at Patient Temp 64 MMHG L 80-100 11/23/2016 6:20pm 6:30pm Arterial Blood HCO3 30 MEQ/L H 22-11/23/2016 6:20pm 11/23/2016 6: 30pm Arterial Blood Total CO2 31.9 MEQ/L H 23-27 11/23/2016 6:20pm 2016 6:30pm Arterial Blood Base Excess 4.8 MMOL/L H -2.0-2.0 11/23/2016 6:20pm 11/23 6:30pm Arterial Blood Oxygen Saturation 92.0 % L 95.0-98.0 11/23/2016 6:20pm 6:30pm Blood Gas Oxygen Percent Given 50 11/23/2016 6:20pm 11/23/2016 6: 30pm Oxygen Delivery Method (LAB) BPAP, % 11/23/2016 6:20pm 11/23/2016 6 :30pm Adenovirus (PCR) NEGATIVE NEGATIVE 11/23/2016 9:00pm 11/23/2016 10: 25pm Coronavirus Type 229E (PCR) NEGATIVE NEGATIVE 11/23/2016 9:00pm 11/23 10:25pm Coronavirus Type HKU1 (PCR) NEGATIVE NEGATIVE 11/23/2016 9:00pm 11/23 10:25pm Coronavirus Type NL63 (PCR) NEGATIVE NEGATIVE 11/23/2016 9:00pm 11/23 10:25pm Coronavirus Type OC43 (PCR) NEGATIVE NEGATIVE 11/23/2016 9:00pm 11/23 10:25pm Human Metapneumovirus (PCR) NEGATIVE NEGATIVE 11/23/2016 9:00pm 11/23 10:25pm Enterovirus/Rhinovirus (PCR) NEGATIVE NEGATIVE 11/23/2016 9:00pm 10:25pm Influenza Virus Type A (PCR) NEGATIVE NEGATIVE 11/23/2016 9:00pm 10:25pm Influenza Virus Type B (PCR) NEGATIVE NEGATIVE 11/23/2016 9:00pm 10:25pm Parainfluenza Type 1 (PCR) NEGATIVE NEGATIVE 11/23/2016 9:00pm 2016 10:25pm Parainfluenza Type 2 (PCR) NEGATIVE NEGATIVE 11/23/2016 9:00pm 2016 10:25pm Parainfluenza Type 3 (PCR) NEGATIVE NEGATIVE 11/23/2016 9:00pm 2016 10:25pm Parainfluenza Type 4 (PCR) NEGATIVE NEGATIVE 11/23/2016 9:00pm 2016 10:25pm Respiratory Syncytial Virus (PCR) NEGATIVE NEGATIVE 11/23/2016 9:00pm 11/23/2016 10:25pm Bordetella parapertussis DNA (PCR) NEGATIVE NEGATIVE 11/23/2016 9: 00pm 11/23/2016 10:25pm Chlamydia pneumoniae DNA (PCR) NEGATIVE NEGATIVE 11/23/2016 9:00pm 10:25pm Mycoplasma pneumoniae (PCR) NEGATIVE NEGATIVE 11/23/2016 9:00pm 11/23 10:25pm Glucometer 78 mg/dL 75-110 11/25/2016 6:18am 11/25/2016 12:47pm Microbiology Results Procedure Source Organism/Result Collection Date/Time Result Date/Time Result Status Blood Culture Peripheral/Iv Start STAPHYLOCOCCUS, NOT S. AUREUS 11/23/2016 5:24pm 11/25/2016 11:58am Preliminary Name: FITO WALTERS Unit #: [id number] : 1955 Sex: M Admit Date: 11/23/16 Loc / Svc: MED Discharge Date: DIAGNOSTIC IMAGING REPORT Report #: [id number] [place], [place] INDICATION: ITS.REASON: F/U pulmonary Edema PROCEDURE: CHEST 2-VIEWS UPRIGHT (PA \\T\\ LAT) Encounter: Initial COMPARISON: November 23, 2016 FINDINGS: Pulmonary edema has significantly improved and has almost completely resolved. Trace fluid along the minor fissure remaining. No pneumothorax The heart size and mediastinal contours are stable. Left cardiac pacemaker defibrillator. Overlying monitoring leads. IMPRESSION: Near complete interval resolution of pulmonary edema. . Procedures No known history of procedures. Encounters Encounter Location Arrival/Admit Date Discharge/Depart Date Attending Provider Discharged Inpatient [facility] 11/23/16 6:31pm 11/25/16 2:30pm YULIANA ANTUNEZ MD
--- OUTSIDE RECORDS SUMMARY | 2017-01-19 01:11 | XMS REPORT | Referral Summary ---
Author Author [facility] Organization [facility] Address Unknown Phone Unavailable Care Team Providers Care Flagsetter Name Role Phone Jatin Hancock Primary Care Physician [phone] Encounter [facility] [id number] Date(s): 11/22/16 - 11/22/16 [facility] [address] [place] [address] [place], [place] [address] Discharge Disposition: 01-Home or Self Care Attending Physician: Fuad Gordon MD Admitting Physician: Fuad Gordon MD Referring Physician: Fuad Gordon MD Vital Signs No [...] DAY, # 30 tabs, 5 Refill(s), eRx: [facility] #[id number], TAKE ONE TABLET BY MOUTH EVERY DAY Start Date: 06/20/16 Status: Ordered aspirin 81 mg, Oral, Daily, 0 Refill(s) Start Date: 08/11/16 Status: Ordered Centrum Silver 1 tabs, Oral, Daily, 0 Refill(s) Start Date: 04/09/14 Status: Ordered digoxin 250 mcg (0.25 mg) oral tablet See Instructions, TAKE ONE TABLET BY MOUTH EVERY DAY, # 90 tabs, eRx: [facility] #[id number], TAKE ONE TABLET BY MOUTH EVERY DAY Start Date: 08/11/16 Status: Ordered Flomax 0.4 mg oral capsule 0.4 mg 1 caps, Oral, Daily, # 30 caps, 2 Refill(s), Pharmacy: [facility] # [id number], 1 caps Oral Daily Start Date: 03/19/15 Status: Ordered FREESTYLE LITE TEST STRIP See Instructions, CHECK BLOOD SUGAR THREE TIMES A DAY, # 100 strip, 4 Refill(s) , eRx: [facility] #[id number], CHECK BLOOD SUGAR THREE TIMES A DAY Start Date: 05/17/16 Status: Ordered FREESTYLE LITE TEST STRIP See Instructions, CHECK BLOOD SUGAR THREE TIMES A DAY, # 100 strip, 5 Refill(s) , eRx: [facility] #[id number], CHECK BLOOD SUGAR THREE TIMES A DAY Start Date: 09/07/15 Status: Ordered furosemide 80 mg oral tablet See Instructions, TAKE ONE TABLET BY MOUTH DAILY, # 90 tabs, 1 Refill(s), eRx: [facility] #[id number], TAKE ONE TABLET BY MOUTH DAILY Start Date: 05/17/16 Status: Ordered Glucometer strips (DME) DME Item freestyle lite test strips check bs tid, See Instructions, # 100 Each , 6 Refill(s), Pharmacy: [facility] #[id number], freestyle lite test strips; check bs tid, Supply Start Date: 11/03/14 Status: Ordered insulin syringe, strips, flexpen insulin syringe, strips, flexpen, 0 Refill(s) Start Date: 04/09/14 Status: Ordered Klor-Con M20 oral tablet, extended release See Instructions, TAKE TWO TABLETS BY MOUTH EVERY MORNING AND ONE TABLET BY MOUTH EVERY NIGHT AT BEDTIME, # 150 tabs, 0 Refill(s), Pharmacy: [facility] #[id number], TAKE TWO TABLETS BY MOUTH EVERY MORNING AND ONE TABLET BY MOUTH EVERY NIGHT AT BED... Start Date: 11/02/16 Status: Ordered KRO PEN NEEDLES 31G 6MM See Instructions, INJECT 5 TIMES DAILY, # 500 unknown unit, 2 Refill(s), eRx: [facility] #[id number], INJECT 5 TIMES DAILY Start Date: 01/19/16 Status: Ordered Lantus Solostar Pen 100 units/mL subcutaneous solution See Instructions, INJECT 52 UNITS SUB-Q IN THE MORNING AND 50 UNITS AT NIGHT, # 45 unknown unit, 11 Refill(s), eRx: [facility] #[id number], INJECT 52 UNITS SUB-Q IN THE MORNING AND 50 UNITS AT NIGHT Start Date: 11/23/15 Status: Ordered lisinopril 20 mg oral tablet See Instructions, TAKE ONE TABLET BY MOUTH TWICE A DAY, # 180 tabs, 1 Refill(s) , Pharmacy: [facility] #[id number] Start Date: 08/24/16 Status: Ordered magnesium oxide 400 mg, Oral, Daily, 0 Refill(s) Start Date: 07/25/14 Status: Ordered Metoprolol Tartrate 100 mg oral tablet See Instructions, TAKE ONE AND ONE-HALF TABLETS BY MOUTH EVERY MORNING, AND ONE TABLET IN THE EVENING, # 225 tabs, eRx: [facility] #[id number] Start Date: 10/28/16 Status: Ordered [place] 10 mg-325 mg oral tablet 1 tabs, Oral, q6hr, as needed for pain, # 60 tabs, 0 Refill(s) Start Date: 11/17/16 Status: Ordered NovoLOG FlexPen 100 units/mL subcutaneous solution See Instructions, INJECT 9 UNITS SUBCUTANEOUSLY BEFORE BREAKFAST, 17-22 UNITS BEFORE LUNCH, AND 28-38 UNITS BEFORE DINNER., # 30 unknown unit, 4 Refill(s), eRx: [facility] #[id number], INJECT 9 UNITS SUBCUTANEOUSLY BEFORE BREAKFAST, 17-22 UNITS BEFO... Start Date: 07/21/16 Status: Ordered omeprazole 20 mg oral delayed release capsule See Instructions, TAKE ONE CAPSULE BY MOUTH DAILY BEFORE BREAKFAST, # 30 caps, eRx: [facility] #[id number] Start Date: 11/04/16 Status: Ordered Pradaxa 150 mg oral capsule See Instructions, TAKE ONE CAPSULE BY MOUTH TWICE A DAY, # 180 caps, eRx: [facility] #[id number], TAKE ONE CAPSULE BY MOUTH TWICE A DAY Start Date: 10/12/16 Status: Ordered rosuvastatin 20 mg oral tablet See Instructions, TAKE ONE-HALF TABLET BY MOUTH DAILY, # 15 tabs, 0 Refill(s), Pharmacy: [facility] #[id number], TAKE ONE-HALF TABLET BY MOUTH DAILY Start Date: 11/02/16 Status: Ordered spironolactone 50 mg oral tablet See Instructions, TAKE ONE TABLET BY MOUTH TWICE A DAY, # 60 tabs, 5 Refill(s), eRx: [facility] #[id number], TAKE ONE TABLET BY MOUTH TWICE A DAY Start Date: 10/06/16 Status: Ordered Viagra 100 mg oral tablet 1 tabs, Oral, Daily, as needed 1 hour prior to intercourse, # 10 tabs, 0 Refill( s), Pharmacy: [facility] #[id number], 1 tabs Oral Daily,PRN:as needed 1 hour prior to intercourse Start Date: 07/30/14 Status: Ordered Victoza 18 mg/3 mL subcutaneous solution See Instructions, DIAL AND INJECT SUBCUTANEOUSLY 1.8MG DAILY, # 9 unknown unit, 4 Refill(s), eRx: [facility] #[id number], DIAL AND INJECT SUBCUTANEOUSLY 1.8MG DAILY Start [...] vaccine 08/21/03 Given 1Location History: given at [facility] [place], [place] Procedures Procedure Date Related Diagnosis Body Site Colonoscopy: polyps (3), tubular adenoma 07/06/07 Implantable defibrillator Implantation of heart pacemaker - single chamber Social History Social History Type Response Smoking Status Never smoker Assessment and Plan No data available for this section
--- OUTSIDE RECORDS SUMMARY | 2017-01-19 01:11 | XMS REPORT | Referral Summary ---
Author Author [facility] Organization [facility] Address Unknown Phone Unavailable Care Team Providers Care Refrigerating Engineer Head Name Role Phone Jatin Hancock Primary Care Physician [phone] Encounter [facility] [id number] Date(s): 08/26/16 - 08/26/16 [facility] [address] [place], [place] [address] Discharge Diagnosis: Afib Discharge Diagnosis: CAD (coronary artery disease) Discharge Diagnosis: Cardiomyopathy Discharge Diagnosis: AICD (automatic cardioverter/defibrillator) present Discharge Diagnosis: Hx of amiodarone therapy Discharge Diagnosis: Ventricular tachycardia Discharge Disposition: 01-Home or Self Care Attending Physician: Guille Bird MD Admitting Physician: Guille Bird MD Vital Signs Most recent to 1 oldest [Reference Range]: Peripheral Pulse 72 bpm Rate [60-100 bpm] (08/26/16 2:17 PM) Blood Pressure 128/70 mmHg [90-140/60-90 mmHg] (08/26/16 2:17 PM) Problem List Condition Effective Dates Status [...] DAY, # 30 tabs, 5 Refill(s), eRx: [facility] #[id number], TAKE ONE TABLET BY MOUTH EVERY DAY Start Date: 06/20/16 Status: Ordered aspirin 81 mg, Oral, Daily, 0 Refill(s) Start Date: 08/11/16 Status: Ordered Centrum Silver 1 tabs, Oral, Daily, 0 Refill(s) Start Date: 04/09/14 Status: Ordered digoxin 250 mcg (0.25 mg) oral tablet See Instructions, TAKE ONE TABLET BY MOUTH EVERY DAY, # 90 tabs, eRx: [facility] #[id number], TAKE ONE TABLET BY MOUTH EVERY DAY Start Date: 08/11/16 Status: Ordered Flomax 0.4 mg oral capsule 0.4 mg 1 caps, Oral, Daily, # 30 caps, 2 Refill(s), Pharmacy: [facility] # [id number], 1 caps Oral Daily Start Date: 03/19/15 Status: Ordered FREESTYLE LITE TEST STRIP See Instructions, CHECK BLOOD SUGAR THREE TIMES A DAY, # 100 strip, 4 Refill(s) , eRx: [facility] #[id number], CHECK BLOOD SUGAR THREE TIMES A DAY Start Date: 05/17/16 Status: Ordered FREESTYLE LITE TEST STRIP See Instructions, CHECK BLOOD SUGAR THREE TIMES A DAY, # 100 strip, 5 Refill(s) , eRx: [facility] #[id number], CHECK BLOOD SUGAR THREE TIMES A DAY Start Date: 09/07/15 Status: Ordered furosemide 80 mg oral tablet See Instructions, TAKE ONE TABLET BY MOUTH DAILY, # 90 tabs, 1 Refill(s), eRx: [facility] #[id number], TAKE ONE TABLET BY MOUTH DAILY Start Date: 05/17/16 Status: Ordered Glucometer strips (DME) DME Item freestyle lite test strips check bs tid, See Instructions, # 100 Each , 6 Refill(s), Pharmacy: [facility] #[id number], freestyle lite test strips; check bs tid, Supply Start Date: 11/03/14 Status: Ordered insulin syringe, strips, flexpen insulin syringe, strips, flexpen, 0 Refill(s) Start Date: 04/09/14 Status: Ordered Klor-Con M20 oral tablet, extended release See Instructions, TAKE TWO TABLETS BY MOUTH EVERY MORNING AND ONE TABLET BY MOUTH EVERY NIGHT AT BEDTIME, # 150 tabs, eRx: [facility] #[id number], TAKE TWO TABLETS BY MOUTH EVERY MORNING AND ONE TABLET BY MOUTH EVERY NIGHT AT BEDTIME Start Date: 08/11/16 Status: Ordered KRO PEN NEEDLES 31G 6MM See Instructions, INJECT 5 TIMES DAILY, # 500 unknown unit, 2 Refill(s), eRx: [facility] #[id number], INJECT 5 TIMES DAILY Start Date: 01/19/16 Status: Ordered Lantus Solostar Pen 100 units/mL subcutaneous solution See Instructions, INJECT 52 UNITS SUB-Q IN THE MORNING AND 50 UNITS AT NIGHT, # 45 unknown unit, 11 Refill(s), eRx: [facility] #[id number], INJECT 52 UNITS SUB-Q IN THE MORNING AND 50 UNITS AT NIGHT Start Date: 11/23/15 Status: Ordered lisinopril 20 mg oral tablet See Instructions, TAKE ONE TABLET BY MOUTH TWICE A DAY, # 180 tabs, 1 Refill(s) , Pharmacy: [facility] #[id number] Start Date: 08/24/16 Status: Ordered magnesium oxide 400 mg, Oral, Daily, 0 Refill(s) Start Date: 07/25/14 Status: Ordered Metoprolol Tartrate 100 mg oral tablet See Instructions, TAKE ONE AND ONE-HALF TABLETS BY MOUTH EVERY MORNING, AND ONE TABLET IN THE EVENING, # 225 tabs, eRx: [facility] #[id number], TAKE ONE AND ONE-HALF TABLETS BY MOUTH EVERY MORNING, AND ONE TABLET IN THE EVENING Start Date: 07/29/16 Status: Ordered [place] 10 mg-325 mg oral tablet 1 tabs, Oral, q6hr, as needed for pain, # 60 tabs, 0 Refill(s) Start Date: 08/22/16 Status: Ordered NovoLOG FlexPen 100 units/mL subcutaneous solution See Instructions, INJECT 9 UNITS SUBCUTANEOUSLY BEFORE BREAKFAST, 17-22 UNITS BEFORE LUNCH, AND 28-38 UNITS BEFORE DINNER., # 30 unknown unit, 4 Refill(s), eRx: [facility] #[id number], INJECT 9 UNITS SUBCUTANEOUSLY BEFORE BREAKFAST, 17-22 UNITS BEFO... Start Date: 07/21/16 Status: Ordered omeprazole 20 mg oral delayed release tablet 20 mg 1 tabs, Oral, Daily, 0 Refill(s) Start Date: 08/11/16 Status: Ordered Pradaxa 150 mg oral capsule See Instructions, TAKE ONE CAPSULE BY MOUTH TWICE A DAY, # 180 caps, eRx: [facility] #[id number], TAKE ONE CAPSULE BY MOUTH TWICE A DAY Start Date: 07/08/16 Status: Ordered rosuvastatin 20 mg oral tablet See Instructions, TAKE ONE-HALF TABLET BY MOUTH DAILY, # 15 tabs, eRx: [facility] #[id number], TAKE ONE-HALF TABLET BY MOUTH DAILY Start Date: 08/15/16 Status: Ordered spironolactone 50 mg oral tablet 50 mg 1 tabs, Oral, BID, # 60 tabs, 3 Refill(s), Pharmacy: [facility] # [id number], 1 tabs Oral BID Start Date: 06/07/16 Status: Ordered Viagra 100 mg oral tablet 1 tabs, Oral, Daily, as needed 1 hour prior to intercourse, # 10 tabs, 0 Refill( s), Pharmacy: [facility] #[id number], 1 tabs Oral Daily,PRN:as needed 1 hour prior to intercourse Start Date: 07/30/14 Status: Ordered Victoza 18 mg/3 mL subcutaneous solution See Instructions, DIAL AND INJECT SUBCUTANEOUSLY 1.8MG DAILY, # 9 unknown unit, 4 Refill(s), eRx: [facility] #[id number], DIAL AND INJECT SUBCUTANEOUSLY 1.8MG DAILY Start Date: 07/12/16 Status: Ordered Results No data available for this section Immunizations Vaccine Date Refusal Reason tetanus/diphth/pertuss (Tdap) adult/adol 05/13/15 influenza virus vaccine, inactivated1 08/10/16 influenza virus vaccine, inactivated 07/30/14 influenza virus vaccine, live 09/03/13 influenza virus vaccine, live 08/30/12 pneumococcal 23-polyvalent vaccine 08/21/03 1Location History: given at [facility] Procedures Procedure Date Related Diagnosis Body Site Colonoscopy: polyps (3), tubular adenoma 07/06/07 Implantable defibrillator Implantation of heart pacemaker - single chamber Social History Social History Type Response Smoking Status Never smoker Assessment and Plan Referrals to Other Providers Referred by: Guille Bird MD
--- OUTSIDE RECORDS SUMMARY | 2017-01-19 01:12 | XMS REPORT | Referral Summary ---
Author Author [facility] Organization [facility] Address Unknown Phone Unavailable Care Team Providers Care Purchasing Director Name Role Phone Jatin Hancock Primary Care Physician [phone] Encounter [facility] [id number] Date(s): 12/12/16 - 12/12/16 [facility], [address] [place] [address] Discharge Diagnosis: CAD (coronary artery disease) Discharge Diagnosis: Cardiomyopathy Discharge Diagnosis: Benign essential hypertension Discharge Diagnosis: CHF (congestive heart failure) Discharge Diagnosis: DM (diabetes mellitus), type 2 with ophthalmic complications Discharge Diagnosis: AICD (automatic cardioverter/defibrillator) present Discharge Diagnosis: PDR (proliferative diabetic retinopathy) Discharge Disposition: 01-Home or Self Care Attending Physician: Markell Hancock MD Admitting Physician: Markell Hancock MD Vital Signs Most recent to 1 oldest [Reference Range]: Blood Pressure 130/82 mmHg [90-140/60-90 mmHg] (12/12/16 8:50 AM) Problem List Condition Effective Dates Status [...] DAY, # 30 tabs, 5 Refill(s), eRx: [facility] #[id number], TAKE ONE TABLET BY MOUTH EVERY DAY Start Date: 06/20/16 Status: Ordered aspirin 81 mg, Oral, Daily, 0 Refill(s) Start Date: 08/11/16 Status: Ordered Centrum Silver 1 tabs, Oral, Daily, 0 Refill(s) Start Date: 04/09/14 Status: Ordered digoxin 250 mcg (0.25 mg) oral tablet See Instructions, TAKE ONE TABLET BY MOUTH EVERY DAY, # 90 tabs, eRx: [facility] #[id number], TAKE ONE TABLET BY MOUTH EVERY DAY Start Date: 08/11/16 Status: Ordered Entresto 49 mg-51 mg oral tablet 1 tabs, Oral, BID, # 60 tabs, 0 Refill(s), samples given to patient (Rx) Start Date: 11/30/16 Status: Ordered FREESTYLE LITE TEST STRIP See Instructions, CHECK BLOOD SUGAR THREE TIMES A DAY, # 100 strip, 4 Refill(s) , eRx: [facility] #[id number], CHECK BLOOD SUGAR THREE TIMES A DAY Start Date: 05/17/16 Status: Ordered FREESTYLE LITE TEST STRIP See Instructions, CHECK BLOOD SUGAR THREE TIMES A DAY, # 100 strip, 5 Refill(s) , eRx: [facility] #[id number], CHECK BLOOD SUGAR THREE TIMES A DAY Start Date: 09/07/15 Status: Ordered furosemide 80 mg oral tablet See Instructions, TAKE ONE TABLET BY MOUTH DAILY, # 90 tabs, 1 Refill(s), eRx: [facility] #[id number], TAKE ONE TABLET BY MOUTH DAILY Start Date: 05/17/16 Status: Ordered Glucometer strips (DME) DME Item freestyle lite test strips check bs tid, See Instructions, # 100 Each , 6 Refill(s), Pharmacy: [facility] #[id number], freestyle lite test strips; check bs tid, Supply Start Date: 11/03/14 Status: Ordered insulin syringe, strips, flexpen insulin syringe, strips, flexpen, 0 Refill(s) Start Date: 04/09/14 Status: Ordered Klor-Con M20 oral tablet, extended release See Instructions, TAKE TWO TABLETS BY MOUTH EVERY MORNING AND ONE TABLET BY MOUTH EVERY NIGHT AT BEDTIME, # 150 tabs, 0 Refill(s), Pharmacy: [facility] #[id number], TAKE TWO TABLETS BY MOUTH EVERY MORNING AND ONE TABLET BY MOUTH EVERY NIGHT AT BED... Start Date: 11/02/16 Status: Ordered KRO PEN NEEDLES 31G 6MM See Instructions, INJECT 5 TIMES DAILY, # 500 unknown unit, 2 Refill(s), eRx: [facility] #[id number], INJECT 5 TIMES DAILY Start Date: 01/19/16 Status: Ordered Lantus Solostar Pen 100 units/mL subcutaneous solution See Instructions, INJECT 52 UNITS SUB-Q IN THE MORNING AND 50 UNITS AT NIGHT, # 45 unknown unit, 11 Refill(s), eRx: [facility] #[id number], INJECT 52 UNITS SUB-Q IN THE MORNING AND 50 UNITS AT NIGHT Start Date: 11/23/15 Status: Ordered magnesium oxide 400 mg, Oral, Daily, as needed, 0 Refill(s) Start Date: 07/25/14 Status: Ordered Metoprolol Tartrate 100 mg oral tablet See Instructions, TAKE ONE AND ONE-HALF TABLETS BY MOUTH EVERY MORNING, AND ONE TABLET IN THE EVENING, # 225 tabs, eRx: [facility] #[id number] Start Date: 10/28/16 Status: Ordered [place] 10 mg-325 mg oral tablet 1 tabs, Oral, q6hr, as needed for pain, May fill 12/17/16, # 60 tabs, 0 Refill(s) Start Date: 12/12/16 Status: Ordered NovoLOG FlexPen 100 units/mL subcutaneous solution See Instructions, INJECT 9 UNITS SUBCUTANEOUSLY BEFORE BREAKFAST, 17-22 UNITS BEFORE LUNCH, AND 28-38 UNITS BEFORE DINNER., # 30 unknown unit, 4 Refill(s), eRx: [facility] #[id number], INJECT 9 UNITS SUBCUTANEOUSLY BEFORE BREAKFAST, 17-22 UNITS BEFO... Start Date: 07/21/16 Status: Ordered omeprazole 20 mg oral delayed release capsule See Instructions, TAKE ONE CAPSULE BY MOUTH DAILY BEFORE BREAKFAST, # 30 caps, eRx: [facility] #[id number] Start Date: 11/04/16 Status: Ordered Pradaxa 150 mg oral capsule See Instructions, TAKE ONE CAPSULE BY MOUTH TWICE A DAY, # 180 caps, eRx: [facility] #[id number], TAKE ONE CAPSULE BY MOUTH TWICE A DAY Start Date: 10/12/16 Status: Ordered rosuvastatin 20 mg oral tablet See Instructions, TAKE ONE-HALF TABLET BY MOUTH DAILY, # 15 tabs, 3 Refill(s), eRx: [facility] #[id number] Start Date: 12/06/16 Status: Ordered spironolactone 50 mg oral tablet See Instructions, TAKE ONE TABLET BY MOUTH TWICE A DAY, # 60 tabs, 5 Refill(s), eRx: [facility] #[id number], TAKE ONE TABLET BY MOUTH TWICE A DAY Start Date: 10/06/16 Status: Ordered tamsulosin 0.4 mg oral capsule See Instructions, TAKE ONE CAPSULE BY MOUTH DAILY, # 30 caps, 1 Refill(s), eRx: [facility] #[id number] Start Date: 11/28/16 Status: Ordered Viagra 100 mg oral tablet 1 tabs, Oral, Daily, as needed 1 hour prior to intercourse, # 10 tabs, 0 Refill( s), Pharmacy: [facility] #[id number], 1 tabs Oral Daily,PRN:as needed 1 hour prior to intercourse Start Date: 07/30/14 Status: Ordered Victoza 18 mg/3 mL subcutaneous solution See Instructions, DIAL AND INJECT SUBCUTANEOUSLY 1.8MG DAILY, # 9 unknown unit, 4 Refill(s), eRx: [facility] #[id number], DIAL AND INJECT SUBCUTANEOUSLY 1.8MG DAILY Start Date: 07/12/16 Status: Ordered Results Chemistry Most recent to 1 oldest [Reference Range]: Sodium Lvl [135-144 140 mEq/L mEq/L] (12/12/16:13 AM) Potassium Lvl 4.5 mEq/L [3.5-5.2 mEq/L] (12/12/16:13 AM) Chloride [99-111 104 mEq/L mEq/L] (12/12/16:13 AM) CO2 [23-31 mEq/L] 27 mEq/L (12/12/16: AM) AGAP [3-20] 9 (12/12/16:13 AM) BUN [8-26 mg/dL] 13 mg/dL (12/12/16:13 AM) Glucose Lvl [70-99 255 mg/dL mg/dL] *HI* (12/12/16: AM) Creatinine Lvl 1.13 mg/dL [0.72-1.25 mg/dL] (12/12/16: AM) eGFR [>60 mL/min] >60 mL/min 1 (12/12/16: AM) Calcium Lvl 8.6 mg/dL 2 [8.4-10.2 mg/dL] (12/12/16:13 AM) Albumin Lvl [3.4-4.8 3.8 gm/dL gm/dL] (12/12/16:13 AM) Total Protein 6.8 gm/dL [6.0-7.6 gm/dL] (12/12/16:13 AM) Globulin [1.8-4.0 3.0 gm/dL gm/dL] (12/12/16:13 AM) ALT [0-55 U/L] 17 U/L (12/12/16:13 AM) AST [5-34 U/L] 18 U/L (12/12/16:13 AM) Alk Phos [40-150 67 U/L U/L] (12/12/16:13 AM) Bili Total [0.2-1.2 1.5 mg/dL mg/dL] *HI* (12/12/16 9:13 AM) Chol [0-199 mg/dL] 133 mg/dL (2/6/17 9:13 AM) Trig [0-149 mg/dL] 79 mg/dL (12/12/16 9:13 AM) HDL [40-84 mg/dL] 39 mg/dL *LOW* (12/12/16 9:13 AM) LDL [0-130 mg/dL] 78 mg/dL (12/12/16 9:13 AM) VLDL Cholesterol 16 mg/dL [0-28 mg/dL] (12/12/16 9:13 AM) Cardiac Risk 3.4 [0.0-5.7] (12/12/16 9:13 AM) Hgb A1c [4.1-5.6 %] 8.9 % *HI* (12/12/16 9:13 AM) eAvg Glucose 208.7 mg/dL (12/12/16 9:13 AM) 1Result Comment: Multiply eGFR results by 1.21 for race. 2Result Comment: Please note reference range change effective 12/09/2016. Immunizations Given and Recorded Vaccine Date Status Refusal Reason tetanus/diphth/pertuss (Tdap) adult/adol 05/13/15 Given influenza virus vaccine, inactivated1 08/10/16 Recorded influenza virus vaccine, inactivated 07/30/14 Recorded influenza virus vaccine, live 09/03/13 Given influenza virus vaccine, live 08/30/12 Given pneumococcal 23-polyvalent vaccine 08/21/03 Given 1Location History: given at [facility] Procedures Procedure Date Related Diagnosis Body Site Collection of venous blood by venipuncture 12/12/16 Colonoscopy: polyps (3), tubular adenoma 07/06/07 Implantable defibrillator Implantation of heart pacemaker - single chamber Social History Social History Type Response Smoking Status Never smoker Assessment and Plan Extracted from: Title: Ambulatory Patient Education Author: Markell Hancock MD Date: 12/12/16 Cardiovascular Cardiomyopathy Cardiomyopathy is a long-term (chronic) [...] Released: 01/05/2006 Document Revised: 11/13/2015 Document Reviewed: [employer] Patient Education 2016 [employer] No follow up information was provided. Extracted from: Title: Office Visit Note Author: Markell Hancock MD Date: 12/12/16 Assessment/Plan 1.CAD (coronary artery disease) This issue was reviewed, appears stable, and current therapy continued except as mentioned. Appropriate lab was reviewed from the most recent appropriate entry and lab was ordered if needed in the cpoe/nursing orders, and follow up recommended generally in 90 days and no later then six months. Reports he has a f/u with Dr. Bird on 12/14. No cp. No soa/herrera. 2.CHF (congestive heart failure) The patient's issue is nearly or completely resolved. There is no further issues or testing desired by them at this time. See above. F/U on 12/14 reported. 3.Cardiomyopathy This issue was reviewed, appears stable, and current therapy continued except as mentioned. Appropriate lab was reviewed from the most recent appropriate entry and lab was ordered if needed in the cpoe/nursing orders, and follow up recommended generally in 90 days and no later then six months. Seeing Dr. Bird. 4.DM (diabetes mellitus), type 2 with ophthalmic complications [...] eye exams, foot exams, and regular care. Lab pending. Refill meds. 5.AICD (automatic cardioverter/defibrillator) present This issue was reviewed, appears stable, and current therapy continued except as mentioned. Appropriate lab was reviewed from the most recent appropriate entry and lab was ordered if needed in the cpoe/nursing orders, and follow up recommended generally in 90 days and no later then six months. Seeing Dr[address] Bird. 6.Benign essential hypertension This issue was reviewed, appears [...] been no chest pain, chest pressure, soa/herrera. The patient had an elevated blood pressure reading and is to monitor their bp and call with a report if consistently > 140/90. 7.PDR (proliferative diabetic retinopathy) This issue was reviewed, appears stable, and current therapy continued except as mentioned. Appropriate lab was reviewed from the most recent appropriate entry and lab was ordered if needed in the cpoe/nursing orders, and follow up recommended generally in 90 days and no later then six months. Reports he has a f/u with the radiation control specialist in the next two weeks. No vision changes reported at this time. Diabetes The patient was notified for the need for regular quarterly f/u of their diabetes. Further any pertinent medication, supplies, etc were refilled. Additionally, they are to have annual eye exams, foot exams, and regular care. Lab pending. Ordered: Comprehensive Metabolic Panel Hemoglobin A1c High cholesterol This issue was reviewed, appears stable, and current therapy continued except as mentioned. Appropriate lab was reviewed from the most recent appropriate entry and lab was ordered if needed in the cpoe/nursing orders, and follow up recommended generally in 90 days and no later then six months. Lab pending. Ordered: Lipid Panel A work/school note was offered and deferred by the patient. [place] refilled per contract.
--- OUTSIDE RECORDS SUMMARY | 2017-01-19 01:12 | XMS REPORT | Referral Summary ---
Author Author [facility] Organization [facility] Address Unknown Phone Unavailable Care Team Providers Care Dope Firer Name Role Phone Jatin Hancock Primary Care Physician [phone] Encounter CHERI [id number] Date(s): 11/28/16 - 11/28/16 [facility] [address] [place], [place] [address] Discharge Diagnosis: On amiodarone therapy Discharge Disposition: 01-Home or Self Care Attending Physician: Michael Wharton MD Admitting Physician: Michael Wharton MD Vital Signs No data available for [...] DAY, # 30 tabs, 5 Refill(s), eRx: [facility] #[id number], TAKE ONE TABLET BY MOUTH EVERY DAY Start Date: 06/20/16 Status: Ordered aspirin 81 mg, Oral, Daily, 0 Refill(s) Start Date: 08/11/16 Status: Ordered Centrum Silver 1 tabs, Oral, Daily, 0 Refill(s) Start Date: 04/09/14 Status: Ordered digoxin 250 mcg (0.25 mg) oral tablet See Instructions, TAKE ONE TABLET BY MOUTH EVERY DAY, # 90 tabs, eRx: [facility] #[id number], TAKE ONE TABLET BY MOUTH EVERY DAY Start Date: 08/11/16 Status: Ordered FREESTYLE LITE TEST STRIP See Instructions, CHECK BLOOD SUGAR THREE TIMES A DAY, # 100 strip, 4 Refill(s) , eRx: [facility] #[id number], CHECK BLOOD SUGAR THREE TIMES A DAY Start Date: 05/17/16 Status: Ordered FREESTYLE LITE TEST STRIP See Instructions, CHECK BLOOD SUGAR THREE TIMES A DAY, # 100 strip, 5 Refill(s) , eRx: [facility] #[id number], CHECK BLOOD SUGAR THREE TIMES A DAY Start Date: 09/07/15 Status: Ordered furosemide 80 mg oral tablet See Instructions, TAKE ONE TABLET BY MOUTH DAILY, # 90 tabs, 1 Refill(s), eRx: [facility] #[id number], TAKE ONE TABLET BY MOUTH DAILY Start Date: 05/17/16 Status: Ordered Glucometer strips (DME) DME Item freestyle lite test strips check bs tid, See Instructions, # 100 Each , 6 Refill(s), Pharmacy: [facility] #[id number], freestyle lite test strips; check bs tid, Supply Start Date: 11/03/14 Status: Ordered insulin syringe, strips, flexpen insulin syringe, strips, flexpen, 0 Refill(s) Start Date: 04/09/14 Status: Ordered Klor-Con M20 oral tablet, extended release See Instructions, TAKE TWO TABLETS BY MOUTH EVERY MORNING AND ONE TABLET BY MOUTH EVERY NIGHT AT BEDTIME, # 150 tabs, 0 Refill(s), Pharmacy: [facility] #[id number], TAKE TWO TABLETS BY MOUTH EVERY MORNING AND ONE TABLET BY MOUTH EVERY NIGHT AT BED... Start Date: 11/02/16 Status: Ordered KRO PEN NEEDLES 31G 6MM See Instructions, INJECT 5 TIMES DAILY, # 500 unknown unit, 2 Refill(s), eRx: [facility] #[id number], INJECT 5 TIMES DAILY Start Date: 01/19/16 Status: Ordered Lantus Solostar Pen 100 units/mL subcutaneous solution See Instructions, INJECT 52 UNITS SUB-Q IN THE MORNING AND 50 UNITS AT NIGHT, # 45 unknown unit, 11 Refill(s), eRx: [facility] #[id number], INJECT 52 UNITS SUB-Q IN THE MORNING AND 50 UNITS AT NIGHT Start Date: 11/23/15 Status: Ordered lisinopril 20 mg oral tablet See Instructions, TAKE ONE TABLET BY MOUTH TWICE A DAY, # 180 tabs, 1 Refill(s) , Pharmacy: [facility] #[id number] Start Date: 08/24/16 Status: Ordered magnesium oxide 400 mg, Oral, Daily, 0 Refill(s) Start Date: 07/25/14 Status: Ordered Metoprolol Tartrate 100 mg oral tablet See Instructions, TAKE ONE AND ONE-HALF TABLETS BY MOUTH EVERY MORNING, AND ONE TABLET IN THE EVENING, # 225 tabs, eRx: [facility] #[id number] Start Date: 10/28/16 Status: Ordered [place] 10 mg-325 mg oral tablet 1 tabs, Oral, q6hr, as needed for pain, # 60 tabs, 0 Refill(s) Start Date: 11/17/16 Status: Ordered NovoLOG FlexPen 100 units/mL subcutaneous solution See Instructions, INJECT 9 UNITS SUBCUTANEOUSLY BEFORE BREAKFAST, 17-22 UNITS BEFORE LUNCH, AND 28-38 UNITS BEFORE DINNER., # 30 unknown unit, 4 Refill(s), eRx: [facility] #[id number], INJECT 9 UNITS SUBCUTANEOUSLY BEFORE BREAKFAST, 17-22 UNITS BEFO... Start Date: 07/21/16 Status: Ordered omeprazole 20 mg oral delayed release capsule See Instructions, TAKE ONE CAPSULE BY MOUTH DAILY BEFORE BREAKFAST, # 30 caps, eRx: [facility] #[id number] Start Date: 11/04/16 Status: Ordered Pradaxa 150 mg oral capsule See Instructions, TAKE ONE CAPSULE BY MOUTH TWICE A DAY, # 180 caps, eRx: [facility] #[id number], TAKE ONE CAPSULE BY MOUTH TWICE A DAY Start Date: 10/12/16 Status: Ordered rosuvastatin 20 mg oral tablet See Instructions, TAKE ONE-HALF TABLET BY MOUTH DAILY, # 15 tabs, 0 Refill(s), Pharmacy: [facility] #[id number], TAKE ONE-HALF TABLET BY MOUTH DAILY Start Date: 11/02/16 Status: Ordered spironolactone 50 mg oral tablet See Instructions, TAKE ONE TABLET BY MOUTH TWICE A DAY, # 60 tabs, 5 Refill(s), eRx: [facility] #[id number], TAKE ONE TABLET BY MOUTH TWICE A DAY Start Date: 10/06/16 Status: Ordered tamsulosin 0.4 mg oral capsule See Instructions, TAKE ONE CAPSULE BY MOUTH DAILY, # 30 caps, 1 Refill(s), eRx: [facility] #[id number] Start Date: 11/28/16 Status: Ordered Viagra 100 mg oral tablet 1 tabs, Oral, Daily, as needed 1 hour prior to intercourse, # 10 tabs, 0 Refill( s), Pharmacy: [facility] #[id number], 1 tabs Oral Daily,PRN:as needed 1 hour prior to intercourse Start Date: 07/30/14 Status: Ordered Victoza 18 mg/3 mL subcutaneous solution See Instructions, DIAL AND INJECT SUBCUTANEOUSLY 1.8MG DAILY, # 9 unknown unit, 4 Refill(s), eRx: [facility] #[id number], DIAL AND INJECT SUBCUTANEOUSLY 1.8MG DAILY Start [...] vaccine 08/21/03 Given 1Location History: given at [facility] [facility] Procedures Procedure Date Related Diagnosis Body Site Colonoscopy: polyps (3), tubular adenoma 07/06/07 Implantable defibrillator Implantation of heart pacemaker - single chamber Social History Social History Type Response Smoking Status Never smoker Assessment and Plan No data available for this section
--- OUTSIDE RECORDS SUMMARY | 2017-01-19 01:12 | XMS REPORT | Continuity of Care Document ---
Author Author [facility] Organization [facility] Address Unknown Phone Unavailable Allergies Active Description Code Type Severity Reaction Onset Reported/Identified Relationship to Patient Clinical Status Yes No Known Medication Allergies NKMA N/A N/A 04/18/2014 Yes No Known Medication Allergies NKMA N/A N/A 04/18/2014 Medications Medication Packaging Start Date Stop Date Route Dosage Sig sildenafil(Viagra) 04/09/2014 07/30/2014 Oral Oral, Daily metolazone(metolazone 5 mg oral tablet) tabs 04/09/20142013 Oral mg tabs, Oral, Daily lisinopril(lisinopril) 04/09/2014 06/11/2014 Oral Oral, Daily potassium chloride(Klor-Con) 04/09/2014 05/21/2014 Oral mEq mEq, Oral, BID dabigatran(Pradaxa) 04/09/2014 06/11/2014 Oral Oral, BID HYDROcodone-acetaminophen([place] 10 mg-325 mg oral tablet) tabs 04/09/2014 05/02/2014 Oral tabs, Oral, q6hr insulin glargine(Lantus) 04/09/2014 07/17/2014 SubCutaneous SubCutaneous digoxin(Lanoxin) 04/09/2014 07/03/2014 Daily HYDROcodone-acetaminophen([place] 10 mg-325 mg oral tablet) 1 tabs 05/02/2014 05/30/2014 Oral 1 tabs, Oral, q6hr, MUST LAST 30 DAYS -N [place], 60 tabs, PRN: as needed for pain potassium chloride(Klor-Con M20 oral tablet, extended release) 05/21/2014 08/13/2014 See Instructions, TAKE TWO TABLETS BY MOUTH EVERY MORNING AND ONE TABLET BY MOUTH EVERY NIGHT AT BEDTIME, 150 tabs HYDROcodone-acetaminophen([place] 10 mg-325 mg oral tablet) 1 tabs 05/30/2014 07/01/2014 Oral 1 tabs, Oral, q6hr, MUST LAST 30 DAYS -[place], 60 tabs, PRN: as needed for pain lisinopril(lisinopril 20 mg oral tablet) 06/11/20142013 See Instructions, TAKE ONE TABLET BY MOUTH TWICE A DAY, 180 tabs dabigatran(Pradaxa 150 mg oral capsule) 06/11/20142013 See Instructions, TAKE ONE CAPSULE BY MOUTH TWICE A DAY, 180 caps HYDROcodone-acetaminophen([place] 10 mg-325 mg oral tablet) 1 tabs 07/01/2014 08/22/2014 Oral 1 tabs, Oral, q6hr, MUST LAST 30 DAYS -[place], 60 tabs, PRN: as needed for pain digoxin(Lanoxin 250 mcg (0.25 mg) oral tablet) 07/03/2014 See Instructions, TAKE ONE TABLET BY MOUTH EVERY DAY, 90 tabs dabigatran(Pradaxa 150 mg oral capsule) 07/14/20142013 See Instructions, TAKE ONE CAPSULE BY MOUTH TWICE A DAY, 180 caps insulin glargine(Lantus Solostar Pen 100 units/mL subcutaneous solution) 07/17/2014 01/14/2015 See Instructions, inject 52 units in the morning 45 units at night, 3 boxes furosemide(Lasix 80 mg oral tablet) 1 tabs 07/24/20142013 Oral 80 mg 1 tabs, Oral, Daily rosuvastatin(Crestor 20 mg oral tablet) 1 tabs 07/24/201406/11 Oral 20 mg 1 tabs, Oral, Bedtime (once a day) lisinopril(lisinopril 20 mg oral tablet) 1 tabs 07/24/2014 Oral 20 mg 1 tabs, Oral, Daily metoprolol(metoprolol tartrate 100 mg oral tablet) tabs 07/25/2014 07/30/2014 Oral mg tabs, Oral, BID metoprolol(metoprolol tartrate 100 mg oral tablet) 1 tabs 07/25/2014 08/25/2014 Oral 100 mg 1 tabs, Oral, BID magnesium oxide(magnesium oxide) 07/25/2014 Oral 400 mg 400 mg, Oral, Daily, 0 Refill(s) spironolactone(spironolactone 50 mg oral tablet) 1 tabs 07/25/2014 10/17/2014 Oral 50 mg 1 tabs, Oral, BID HYDROcodone-acetaminophen([place] 10 mg-325 mg oral tablet) 1 tabs 07/30/2014 07/30/2014 Oral 1 tabs, Oral, q6hr, [place], 60 tabs, PRN: as needed for pain HYDROcodone-acetaminophen([place] 10 mg-325 mg oral tablet) 1 tabs 07/30/2014 08/25/2014 Oral 1 tabs, Oral, q6hr, [place], 60 tabs, PRN: as needed for pain sildenafil(Viagra 100 mg oral tablet) 1 tabs 07/30/2014 Oral 100 mg 1 tabs, Oral, Daily, 10 tabs, PRN: as needed 1 hour prior to intercourse potassium chloride(Klor-Con M20 oral tablet, extended release) 08/13/2014 01/22/2015 See Instructions, TAKE TWO TABLETS BY MOUTH EVERY MORNING AND ONE TABLET BY MOUTH EVERY NIGHT AT BEDTIME, 150 tabs HYDROcodone-acetaminophen([place] 10 mg-325 mg oral tablet) 1 tabs 08/25/2014 09/29/2014 Oral 1 tabs, Oral, q6hr, [place] May fill 08/29/14 , 60 tabs, PRN: as needed for pain metoprolol(metoprolol tartrate 100 mg oral tablet) 08/25/2014 02/18/2015 See Instructions, 1 1/2 tab q am, 1 tab q pm., 225 tabs insulin aspart(NovoLOG FlexPen 100 units/mL subcutaneous solution) 08/25/2014 11/03/2014 See Instructions, 9 units SubCutaneous before breakfast,17-22 units before lunch, and 28-38 units before dinner., 30 mL furosemide(Lasix 80 mg oral tablet) 1 tabs 08/25/20142014 Oral 80 mg 1 tabs, Oral, Daily, 90 tabs lisinopril(lisinopril 20 mg oral tablet) 09/10/20142014 See Instructions, TAKE ONE TABLET BY MOUTH TWICE A DAY, 180 tabs metolazone(metolazone 2.5 mg oral tablet) 09/24/2014 See Instructions, 1 tabs Oral NEEDED, 30 Each dabigatran(Pradaxa 150 mg oral capsule) 10/10/20142014 See Instructions, TAKE ONE CAPSULE BY MOUTH TWICE A DAY, 180 caps potassium chloride(Klor-Con M20 oral tablet, extended release) 10/24/2014 01/22/2015 See Instructions, TAKE TWO TABLETS BY MOUTH EVERY MORNING AND ONE TABLET BY MOUTH EVERY NIGHT AT BEDTIME, 150 tabs insulin aspart(NovoLOG FlexPen 100 units/mL subcutaneous solution) 11/03/2014 07/22/2015 See Instructions, 9 units SubCutaneous before breakfast,17-22 units before lunch, and 28-38 units before dinner., 30 mL tamsulosin(Flomax 0.4 mg oral capsule) 1 caps 11/03/20142014 Oral 0.4 mg 1 caps, Oral, Daily, 14 caps digoxin(Lanoxin 250 mcg (0.25 mg) oral tablet) 12/26/201411/2014 See Instructions, TAKE ONE TABLET BY MOUTH EVERY DAY, 90 tabs dabigatran(Pradaxa 150 mg oral capsule) 01/09/20152014 See Instructions, TAKE ONE CAPSULE BY MOUTH TWICE A DAY, 180 caps insulin glargine(Lantus Solostar Pen 100 units/mL subcutaneous solution) 01/14/2015 07/22/2015 See Instructions, INJECT 52 UNITS SUB-Q IN THE MORNING AND 50 UNITS AT NIGHT, 45 unknown unit potassium chloride(Klor-Con M20 oral tablet, extended release) 01/22/2015 04/20/2015 See Instructions, TAKE TWO TABLETS BY MOUTH EVERY MORNING AND ONE TABLET BY MOUTH EVERY NIGHT AT BEDTIME, 150 tabs liraglutide(Victoza 18 mg/3 mL subcutaneous solution) 01/30/2015 03/19/2015 SubCutaneous 0.6 mg 0.6 mg, SubCutaneous, Daily, 6 mL, 0 Refill(s ) furosemide(Lasix 80 mg oral tablet) 1 tabs 01/30/20152014 Oral 80 mg 1 tabs, Oral, Daily, 90 tabs amiodarone(amiodarone 200 mg oral tablet) 03/10/20152014 See Instructions, TAKE ONE TABLET BY MOUTH EVERY DAY, 30 tabs liraglutide(Victoza 18 mg/3 mL subcutaneous solution) 03/19/2015 05/01/2015 SubCutaneous 1.2 mg 1.2 mg, SubCutaneous, Daily, 6 mL, 0 Refill(s ) tamsulosin(Flomax 0.4 mg oral capsule) 1 caps 03/19/20152016 Oral 0.4 mg 0.4 mg=1 caps, Oral, Daily, 30 caps, 2 Refill(s) potassium chloride(Klor-Con M20 oral tablet, extended release) 04/20/2015 07/20/2015 See Instructions, TAKE TWO TABLETS BY MOUTH EVERY MORNING AND ONE TABLET BY MOUTH EVERY NIGHT AT BEDTIME, 150 tabs liraglutide(Victoza 18 mg/3 mL subcutaneous solution) 05/01/2015 06/02/2015 See Instructions, DIAL AND INJECT SUBCUTANEOUSLY 1.2MG DAILY, 6 unknown unit dabigatran(Pradaxa 150 mg oral capsule) 05/07/20152014 See Instructions, TAKE ONE CAPSULE BY MOUTH TWICE A DAY, 180 caps liraglutide(Victoza 18 mg/3 mL subcutaneous solution) 06/02/2015 08/12/2015 See Instructions, DIAL AND INJECT SUBCUTANEOUSLY 1.2MG DAILY, 6 unknown unit, 2 Refill(s) lisinopril(lisinopril 20 mg oral tablet) 06/03/20152015 See Instructions, TAKE ONE TABLET BY MOUTH TWICE A DAY, 180 tabs, 1 Refill(s) rosuvastatin(Crestor 20 mg oral tablet) 06/11/20152015 See Instructions, TAKE ONE-HALF TABLET BY MOUTH EVERY DAY, 15 tabs, 2 Refill(s) digoxin(Lanoxin 250 mcg (0.25 mg) oral tablet) 07/07/2015 See Instructions, TAKE HALFTABLET BY MOUTH EVERY DAY, 90 tabs, 1 Refill(s) potassium chloride(Klor-Con M20 oral tablet, extended release) 07/20/2015 12/11/2015 See Instructions, TAKE TWO TABLETS BY MOUTH EVERY MORNING AND ONE TABLET BY MOUTH EVERY NIGHT AT BEDTIME, 150 tabs, 1 Refill(s) midazolam(Versed) 2 mL 07/22/2015 07/22/2015 IV Push 2 mg 2 mg= 2 mL, IV Push, q3min, PRN: Other (See Comment) fentaNYL(Sublimaze) 1 mL 07/22/2015 07/22/2015 IV Push 50 mcg 50 mcg=1 mL, IV Push, q3min, PRN: Other (See Comment) Sodium Chloride 0.9%(Sodium Chloride 0.9% 1,000 mL) 1,000 mL 07/22/2015 07/22/2015 IV 75 mL/hr, IV ceFAZolin(ceFAZolin) 07/22/2015 07/22/2015 Irrigation 1,000 mg 1,000 mg, Irrigation, Once HYDROcodone-acetaminophen([place] 5 mg-325 mg oral tablet) 1 tabs 07/22/2015 07/22/2015 Oral 1 tabs, Oral, q4hr, PRN: Pain Moderate (4-6) ceFAZolin(ceFAZolin) 10 mL 07/22/2015 07/22/2015 IV Push 1 g 1 g= 10 mL, IV Push, Once acetaminophen(acetaminophen) 2 tabs 07/22/2015 07/22/2015 Oral 650 mg 650 mg=2 tabs, Oral, q4hr, PRN: Pain Mild (1-3) ceFAZolin(ceFAZolin 1 g injection) 07/22/2015 08/05/2015 IV Push IV Push, Once, 0 Refill(s) acetaminophen(acetaminophen 325 mg oral tablet) 2 tabs 07/22/2015 Oral 650 mg 650 mg=2 tabs, Oral, q4hr, PRN: Pain Mild (1-3), 0 Refill(s) HYDROcodone-acetaminophen([place] 10 mg-325 mg oral tablet) 1 tabs 09/22/2015 10/27/2015 Oral 1 tabs, Oral, q6hr, PRN: as needed for pain, 60 tabs, 0 Refill(s) liraglutide(Victoza 18 mg/3 mL subcutaneous solution) 10/09/2015 11/05/2015 See Instructions, DIAL AND INJECT SUBCUTANEOUSLY 1.2MG DAILY, 6 unknown unit azithromycin(Zithromax Z-Paul 250 mg oral tablet) 1 packets 10/14/2015 10/14/2015 Oral 1 packets, Oral, Once, as directed on package labeling, 6 tabs, 0 Refill(s) insulin glargine(Lantus Solostar Pen 100 units/mL subcutaneous solution) 10/19/2015 11/23/2015 See Instructions, INJECT 52 UNITS SUB-Q IN THE MORNING AND 50 UNITS AT NIGHT, 45 unknown unit liraglutide(Victoza 18 mg/3 mL subcutaneous solution) 11/05/2015 12/23/2015 See Instructions, DIAL AND INJECT SUBCUTANEOUSLY 1.2MG DAILY, 6 unknown unit, 1 Refill(s) HYDROcodone-acetaminophen([place] 10 mg-325 mg oral tablet) 1 tabs 12/23/2015 01/22/2016 Oral 1 tabs, Oral, q6hr, May fill 12/25, PRN: as needed for pain, 60 tabs, 0 Refill(s) azithromycin(Zithromax Z-Paul 250 mg oral tablet) 1 packets 12/23/2015 12/23/2015 Oral 1 packets, Oral, Once, as directed on package labeling, 6 tabs, 0 Refill(s) canagliflozin(Invokana 100 mg oral tablet) 1 tabs 12/23/2015 Oral 100 mg 100 mg=1 tabs, Oral, Daily, 30 tabs, 0 Refill(s) liraglutide(Victoza 18 mg/3 mL subcutaneous solution) 12/23/2015 06/20/2016 SubCutaneous 1.8 mg 1.8 mg, SubCutaneous, Daily, for 30 days, Note increase in dose., 9 mL, 5 Refill(s) amiodarone(amiodarone 200 mg oral tablet) 01/25/2016 See Instructions, TAKE ONE TABLET BY MOUTH EVERY DAY, 30 tabs, 4 Refill(s) azithromycin(Zithromax Z-[place] 250 mg oral tablet) 1 packets 03/07/2016 03/07/2016 Oral 1 packets, Oral, Once, as directed on package labeling, 6 tabs, 0 Refill(s) promethazine-codeine(promethazine-codeine 6.25 mg-10 mg/5 mL oral syrup) 5 mL 12/201503/22/2016 Oral 5 mL, Oral, q4hr, PRN: as needed for cough, 120 mL, 0 Refill(s) HYDROcodone-acetaminophen([place] 10 mg-325 mg oral tablet) 1 tabs 03/22/2016 04/22/2016 Oral 1 tabs, Oral, q6hr, May fill 03/24, PRN: as needed for pain, 60 tabs, 0 Refill(s) potassium chloride(Klor-Con M20 oral tablet, extended release) 05/23/2016 See Instructions, TAKE TWO TABLETS BY MOUTH EVERY MORNING AND ONE TABLET BY MOUTH EVERY NIGHT AT BEDTIME, 150 tabs lisinopril(lisinopril 20 mg oral tablet) 08/24/2016 See Instructions, TAKE ONE TABLET BY MOUTH TWICE A DAY, 180 tabs, 1 Refill(s) tamsulosin(tamsulosin 0.4 mg oral capsule) 11/28/2016 See Instructions, TAKE ONE CAPSULE BY MOUTH DAILY, 30 caps, 1 Refill(s) sacubitril-valsartan(Entresto 49 mg-51 mg oral tablet) 1 tabs 11/30/2016 01/04/2017 Oral 1 tabs, Oral, BID, 60 tabs, 0 Refill(s) HYDROcodone-acetaminophen([place] 10 mg-325 mg oral tablet) 1 tabs 12/12/2016 Oral 1 tabs, Oral, q6hr, May fill 12/17/16, PRN: as needed for pain, 60 tabs, 0 Refill(s) sacubitril-valsartan(sacubitril-valsartan 97 mg-103 mg oral tablet) 1 tabs 11/2016 Oral 1 tabs, Oral, BID, 60 tabs, 4 Refill(s) Problems Date Dx Coded Attending Type Code Diagnosis Diagnosed By 07/23/2015 Pelon BOB, Guille Marin Final 250.50 Diabetes mellitus with ophthalmic manifestations, type II or unspecified ty 07/23/2015 Pelon BOB, P Tomas Final 272.4 OTHER AND UNSPECIFIED HYPERLIPIDEMIA 07/23/2015 Pelon BOB, Guille Marin Final 278.00 OBESITY, UNSPECIFIED 07/23/2015 Guille Bird MD Final 362.02 PROLIFERATIVE DIABETIC RETINOPATHY 07/23/2015 Guille Bird MD Final 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 07/23/2015 Pelon BOB, Guille Marin Final 401.1 BENIGN ESSENTIAL HYPERTENSION 07/23/2015 Guille Bird MD Final 414.01 CORONARY ATHEROSCLEROSIS OF [place] CORONARY ARTERY 07/23/2015 Pelon BOB P Tomas Final 414.8 OTHER SPECIFIED FORMS OF CHRONIC ISCHEMIC HEART DISEASE 07/23/2015 Guille Bird MD Final 425.4 OTHER PRIMARY CARDIOMYOPATHIES 07/23/2015 Guille Bird MD Final 427.1 PAROXYSMAL VENTRICULAR TACHYCARDIA 07/23/2015 Guille Bird MD Final 427.31 ATRIAL FIBRILLATION 07/23/2015 Guille Bird MD Final 428.0 CONGESTIVE HEART FAILURE, UNSPECIFIED 07/23/2015 Pelon BOB, Guille Marin Reason V53.32 FITTING AND ADJUSTMENT OF AUTOMATIC IMPLANTABLE CARDIAC DEFIBRILLATOR 07/23/2015 Pelon BOB, Guille Marin Final V58.67 Long-Term (Current) Use of Insulin 07/23/2015 Pelon BOB, Guille Marin Final V85.41 Body Mass Index 40.0-44.9, Adult Procedures Results Test Result Range Basic Metabolic Panel (BMP) - 03/22/16 09:23 Anion Gap 8 NA 3-20 BUN 23 mg/dL 8-26 Calcium 9.1 mg/dL 8.9-10.5 Chloride 100 mEq/L 99-111 CO2 34 mEq/L 23-31 Creatinine 1.12 mg/dL 0.72-1.25 Glucose 103 mg/dL 70-99 Potassium 3.5 mEq/L 3.5-5.2 Sodium 142 mEq/L 135-144 eGFR - 03/22/16 09:23 eGFR >60 mL/min >60 Basic Metabolic Panel (BMP) - 11/30/16 08:45 Anion Gap 10 NA 3-20 BUN 20 mg/dL 8-26 Calcium 9.0 mg/dL 8.9-10.5 Chloride 104 mEq/L 99-111 CO2 29 mEq/L 23-31 Creatinine 1.02 mg/dL 0.72-1.25 Glucose 235 mg/dL 70-99 Potassium 4.1 mEq/L 3.5-5.2 Sodium 143 mEq/L 135-144 eGFR - 11/30/16 08:45 eGFR >60 mL/min >60 B-Type Natriuretic Peptide - 11/30/16 08:45 B-Type Natriuretic Peptide 164 pg/mL 0- 99 Comprehensive Metabolic Panel (CMP) - 12/12/16 09:13 Albumin 3.8 g/dL 3.4-4.8 Alkaline Phosphatase 67 U/L 40-150 ALT (SGPT) 17 U/L 0-55 Anion Gap 9 NA 3-20 AST (SGOT) 18 U/L 5-34 Bilirubin Total 1.5 mg/dL 0.2-1.2 BUN 13 mg/dL 8-26 Calcium 8.6 mg/dL 8.4-10.2 Chloride 104 mEq/L 99-111 CO2 27 mEq/L 23-31 Creatinine 1.13 mg/dL 0.72-1.25 Globulin 3.0 g/dL 1.8-4.0 Glucose 255 mg/dL 70-99 Potassium 4.5 mEq/L 3.5-5.2 Protein 6.8 g/dL 6.0-7.6 Sodium 140 mEq/L 135-144 Lipid Panel - 12/12/16 09:13 Cardiac Risk 3.4 0.0-5.7 Cholesterol 133 mg/dL 0-199 HDL Cholesterol 39 mg/dL 40-84 LDL Cholesterol 78 mg/dL 0-130 Triglycerides 79 mg/dL 0-149 VLDL Cholesterol 16 mg/dL 0-28 eGFR - 12/12/16 09:13 eGFR >60 mL/min >60 Hemoglobin A1C - 12/12/16 09:13 Hemoglobin A1C 8.9 % 4.1-5.6 Estimated Average Glucose - 12/12/16 09:13 Estimated Average Glucose 208.7 mg/dL Encounters ACCT No. Visit Date/Time Discharge Status Pt. Type Provider Facility Loc./Unit Complaint [id number] 10/08/2013 12:47:00 10/08/2013 23 :59:59 CLS Outpatient [id number] 10/01/2013 08:29:00 10/01/2013 23 :59:59 CLS Outpatient
[2017-01-19] MEDS ORDERED: SACU1TAB4 PO (01:23)
--- NOTE | 2017-01-19 01:28 | NUR ---
PROVIDER DR GONZALEZ IN ROOM AT THIS TIME.
[2017-01-19] MEDS ORDERED: G.I. COCKTAIL 30ml PO ONE (01:45)
--- OUTSIDE RECORDS SUMMARY | 2017-01-19 01:46 | XMS REPORT | Continuity of Care Document ---
Author Author [facility] Organization [facility] Address Unknown Phone Unavailable Allergies Active Description [...] BID dabigatran(Pradaxa) 04/09/2014 06/11/2014 Oral Oral, BID HYDROcodone-acetaminophen([place] 10 mg-325 mg oral tablet) tabs 04/09/2014 05/02/2014 Oral tabs, Oral, q6hr insulin glargine(Lantus) 04/09/2014 07/17/2014 SubCutaneous SubCutaneous digoxin(Lanoxin) 04/09/2014 07/03/2014 Daily HYDROcodone-acetaminophen([place] 10 mg-325 mg oral tablet) 1 tabs 05/02/2014 05/30/2014 Oral 1 tabs, Oral, q6hr, MUST LAST 30 DAYS -N DILL[place], 60 tabs, PRN: as needed for pain potassium chloride(Klor-Con M20 oral tablet, extended release) 05/21/2014 08/13/2014 See Instructions, TAKE TWO TABLETS BY MOUTH EVERY MORNING AND ONE TABLET BY MOUTH EVERY NIGHT AT BEDTIME, 150 tabs HYDROcodone-acetaminophen([place] 10 mg-325 mg oral tablet) 1 tabs 05/30/2014 07/01/2014 Oral 1 tabs, Oral, q6hr, MUST LAST 30 DAYS -N [place], 60 tabs, PRN: as needed for pain lisinopril(lisinopril 20 mg oral tablet) 06/11/20142013 See Instructions, TAKE ONE TABLET BY MOUTH TWICE A DAY, 180 tabs dabigatran(Pradaxa 150 mg oral capsule) 06/11/20142013 See Instructions, TAKE ONE CAPSULE BY MOUTH TWICE A DAY, 180 caps HYDROcodone-acetaminophen([place] 10 mg-325 mg oral tablet) 1 tabs [...] Oral 50 mg 1 tabs, Oral, BID HYDROcodone-acetaminophen([place] 10 mg-325 mg oral tablet) 1 tabs 07/30/2014 07/30/2014 Oral 1 tabs, Oral, q6hr, [place], 60 tabs, PRN: as needed for pain HYDROcodone-acetaminophen([place] 10 mg-325 mg oral tablet) 1 tabs [...] MOUTH EVERY NIGHT AT BEDTIME, 150 tabs HYDROcodone-acetaminophen([place] 10 mg-325 mg oral tablet) 1 tabs [...] Irrigation 1,000 mg 1,000 mg, Irrigation, Once HYDROcodone-acetaminophen([place] 5 mg-325 mg oral tablet) 1 tabs [...] q4hr, PRN: Pain Mild (1-3), 0 Refill(s) HYDROcodone-acetaminophen([place] 10 mg-325 mg oral tablet) 1 tabs [...] 1.2MG DAILY, 6 unknown unit, 1 Refill(s) HYDROcodone-acetaminophen([place] 10 mg-325 mg oral tablet) 1 tabs [...] needed for cough, 120 mL, 0 Refill(s) HYDROcodone-acetaminophen([place] 10 mg-325 mg oral tablet) 1 tabs [...] tabs, Oral, BID, 60 tabs, 0 Refill(s) HYDROcodone-acetaminophen([place] 10 mg-325 mg oral tablet) 1 tabs [...] Bird MD Final 414.01 CORONARY ATHEROSCLEROSIS OF [place] CORONARY ARTERY 07/23/2015 Pelon BOB P Tomas [...] Status Pt. Type Provider Facility Loc./Unit Complaint [id number] 10/08/2013 12:47:00 10/08/2013 23 :59:59 CLS Outpatient [id number] 10/01/2013 08:29:00 10/01/2013 23 :59:59 CLS Outpatient
--- NOTE | 2017-01-19 01:48 | ERPDOC ---
Departure Disposition Decision Date: Jan 19, 2017 Disposition Decision Time: 04:13 Disposition: 01 DISCHARGED HOME, SELF-CARE Impression Impression Impression: Primary Impression: Muscle spasm Severity: Moderate Condition: Stable Seen By: Physician only Referrals: MANSOOR CHAPPELL MD (PCP) 3 Days Patient Instructions: Muscle Spasm (ED) Problems/Meds/Labs Reviewed?: Yes Medications reviewed and manag: Yes Additional Instructions: You have spasms of your neck. We did not find the cause of your spasms tonight. You will need to follow up with your doctor later this week to continue to find the source of your symptoms. Departure Forms: Return to Work/School Permit Follow up care ordered?: Yes Mental Status: Alert, Oriented Scripts Cyclobenzaprine HCl (Cyclobenzaprine HCl) 10 Mg Tablet 10 MG PO TID Y for MUSCLE SPASM, #40 TAB 0 Refills Prov: ANJELICA GONZALEZ DO 01/19/17 HPI - EENT General General Chief Complaint: Throat Pain/Injury Stated Complaint: THROAT ISSUES Time Seen by Provider: 01:25 Source: patient Exam Limitations: no limitations HPI - EENT General Initial Comments 61[facility]'. Pt noticed a feeling of spasm in his throat, near the sternal notch, around 1800 last night immediately after dinner. Sx have come/gone throughout the evening; he came in now because he couldn't sleep. Has never had sx like this before. Has never had food get 'stuck' - no known food stuck. Occurred At: home Onset/Timing: Rapid, Constant Duration: 6-12 hrs Severity: moderate Location: throat 1 - Spasm Prearrival Treatment: no prearrival treatment Associated Symptoms: denies symptoms Allergies: Coded Allergies: No Known Allergies (Verified , 08/10/16) Past History Patient Surgical History none Past Medical History Metabolic: diabetes, hypercholesterolemia, hypertension Cardiac: A-fib, CHF Surgical History Cardiac: pacemaker Family History Family PMH: FOUND: DC, diabetes Vaccines Hx Influenza Vaccination: Yes (Aug 2015) Hx Pneumococcal Vaccination: Yes (Aug 2015) Social History Does patient use chewing tobac: No Second Hand Exposure: No Substance Use Type: does not use Alcohol Intake: none Marital Status: Single Housing: house Service: No Occupational Hazard: No Advance Directives: Yes Full Code Review of Systems ENMT Mouth/Throat: other (spasming) All other Systems All Other Systems: Reviewed and Negative Physical Exam General General Nourishment: well nourished, well developed, appears stated age, no acute distress, adult, obese General Body Habitus: well groomed Vitals and Pain First Documented Vital Signs Date Time Temp Pulse Resp B/P Pulse Ox O2 Delivery O2 Flow Rate FiO2 01/19/17 01:04 98.7 73 18 94 Room Air 01/19/17 04:41 169/82 Weight: Kilograms: Height (feet): 5 Height (inches): 6.00 Triage Pain Scale: RN VS reviewed by Provider: Yes Eyes (brief) Eyes Brief: found: EOMI, PERRL, not found: scleral icterus ENMT (brief) ENMT Brief: FOUND: TM clear, TM good light reflex, ear canals clear, mucosa moist, normal tonsils Neck (brief) Neck: FOUND: thyromegaly (With palpable nodules), trachea midline, NOT FOUND: JVD, adenopathy Respiratory (brief) Respiratory: FOUND: clear all dorsey, equal bilaterally, symmetrical, NOT FOUND : rales, wheezes Cardiovascular (brief) Cardiac: FOUND: regular rate, regular rhythm, NOT FOUND: click, gallop, murmur , pedal edema, peripheral edema, rub Capillary Refill: <2 sec Pulses: all distal extremities, equal, strong Abdomen (brief) Abdominal Brief: FOUND: bowel normo active x4, soft, NOT FOUND: distended, hepatosplenomegaly, pulsatile mass, tender Lymphatic (brief) Lymphatic Brief: NOT FOUND: adenopathy, lymphedema Musculoskeletal (brief) Musculoskeletal Brief: NOT FOUND: deformity, loss of motion, spasm, tenderness Integumentary (brief) Integumentary Brief: FOUND: warm Comments Darkened discoloration of sun-exposed areas of head/neck/face Neurologic (brief) Neurological Brief: FOUND: CN w/o gross def to obs, DTR 2/4 all extremities, gait w/o gross def to obs, motor-no gross deficits, sensory-no gross deficits Psychiatric (brief) Psychiatric Brief: FOUND: alert, normal affect, oriented Differential Diagnoses Considering: Pharyngitis, Sinusitis, Other (Globus, food impaction, thyromegaly ) Progress Results/Orders Orders Procedure Category Date Status Time Hemagram - Cbc No Diff LAB 01/19/17 Complete Cmp - Comprehensive LAB 01/19/17 Complete Metabolic Magnesium LAB 01/19/17 Complete Phosphorus LAB 01/19/17 Complete 01:35 Tsh - Thyroid Stim LAB 01/19/[address] Neck W/Contrast CT 01/19/17 Taken 01:35 Ct Chest W/Contrast CT 01/19/17 Resulted G.I. Cocktail PHA 01/19/17 Complete (/Maalox/Lidocaine 01:45 Iv Lock (Ed Only) EDM 01/19/17 Transmitted 02:08 Iodixanol (Visipaque) PHA 01/19/17 Complete 02:22 Normal Saline (Ns) PHA 01/19/17 Complete 02:22 Saline Flush (Iv PHA 01/19/17 Complete Flush) 02:22 Cyclobenzaprine PHA 01/19/17 Complete (Prepack) (Flexeril 04:30 Lab Results Laboratory Tests Test 01/19/17 01:45 White Blood Count 5.7T/MM3 Red Blood Count 6.00M/MM3 Hemoglobin 16.0GM/DL Hematocrit 48.6% Mean Corpuscular Volume 81.0UM3 Mean Corpuscular Hemoglobin 26.7UUG Mean Corpuscular Hemoglobin Concent 32.9GM/DL RDW Standard Deviation 40.5FL Platelet Count 139T/MM3 Mean Platelet Volume 10.8UM3 Turbidity < 20 Sodium Level 144MEQ/L Potassium Level 3.7MEQ/L Chloride Level 103MEQ/L Carbon Dioxide Level 32MEQ/L Anion Gap 9MEQ/L Blood Urea Nitrogen 16.0MG/DL Creatinine 1.0MG/DL Glomerular Filtration Rate Calc 76 BUN/Creatinine Ratio 16RATIO Glucose Level 155MG/DL Calculated Osmolality 281MOSM/KG Calcium Level 8.9MG/DL Phosphorus Level 3.1MG/DL Magnesium Level 1.6MG/DL Total Bilirubin 1.30MG/DL Icterus Index < 2 Aspartate Amino Transf (AST/SGOT) 25U/L Alanine Aminotransferase (ALT/SGPT) 32U/L Alkaline Phosphatase 68U/L Total Protein 7.5G/DL Albumin 4.1G/DL Globulin 3.4G/DL Albumin/Globulin Ratio 1.2RATIO Thyroid Stimulating Hormone (TSH) 1.71MIU/L Chemistry Specimen Hemolysis < 15 Medications Current ED Medications Pharmacy Profile Note (/Maalox/ Lidocaine Soln) 30 ml O ONCE PO Last administered on 01/19/17 01:49; Start 01/19/17 at 01:45; Stop 01/19/17 at 01:47 ; Status DC Iodixanol 1 bottle 1 bottle STK-MED ONCE IV ; Start 01/19/17 at 02:22; Stop at 02:23; Status DC Sodium Chloride (NS) 100 ml @ As Directed STK-MED ONCE .ROUTE ; Start 01/19/17 at 02:22; Stop 01/19/17 at 02:23; Status DC Sodium Chloride (Iv Flush) 10 ml STK-MED ONCE .ROUTE ; Start 01/19/17 at 02:22; Stop 01/19/17 at 02:23; Status DC Cyclobenzaprine HCl (FLEXERIL (PrePack)) 1 pack O ONCE SENT HOME Last administered on 01/19/17 04:40; Start 01/19/17 at 04:30; Stop 01/19/17 at 04:32 ; Status DC Progress Progress 61yo man with spasms of his neck. No emergent/urgent findings on exam. Pt able to tolerate PO without difficulty. TSH wnl. Unclear source of pts sx at this time. Pt able to move, breath, and swallow without difficulty. Offered pt a muscle relaxer to help with likely MSK source of spasms. Pt amenable. Will give excellent RTC precautions and instructions to f/u with PCM. CT CT #1: CT: Other (Neck) Interpretation: Normal, Reviewed Written Report CT #2: CT: Chest IV contrast Interpretation: Abnormal (Cardiomegaly, cholelithiasis, left adrenal nodule) , Reviewed Written Report ANJELICA GONZALEZ DO Jan 19, 2017 01:48
[2017-01-19 01:53] LABS: HCT - HEMATOCRIT 48.6 % (41-53); MEAN CORPUSCULAR HGB 26.7 UUG (26-34); MEAN CORPUSCULAR HGB CONC(MCHC 32.9 GM/DL (31-37); MEAN PLATELET VOLUME 10.8 UM3 (9.4-12.4); WBC - WHITE BLOOD COUNT 5.7 T/MM3 (4.5-11.0)
[2017-01-19 02:00] LABS: ALBUMIN 4.1 G/DL (3.5-5.0); ALBUMIN/GLOBULIN RATIO 1.2 RATIO (1.1-2.2); ALKALINE PHOSPHATASE 68 U/L (38-126); ALT (SGPT) 32 U/L (21-72); ANION GAP 9 MEQ/L (5-15); AST (SGOT) 25 U/L (17-59); BUN/CREATININE RATIO 16 RATIO (6-26); CALCIUM 8.9 MG/DL (8.4-10.2); CHLORIDE 103 MEQ/L (98-107); CO2 - CARBON DIOXIDE 32 MEQ/L (22-30); GLOMERULAR FILTRATION RATE 76; GLUCOSE 155 MG/DL (75-110); MAGNESIUM 1.6 MG/DL (1.6-2.3); PHOSPHORUS 3.1 MG/DL (2.5-4.5); POTASSIUM 3.7 MEQ/L (3.6-5); SODIUM 144 MEQ/L (134-144); TOTAL PROTEIN 7.5 G/DL (6.3-8.2)
[2017-01-19] MEDS ORDERED: METO100T5 PO (02:06)
[2017-01-19] MEDS ORDERED: IODIXANOL 320 MG/ML 100ml INJECTION IV ONE (02:22)
[2017-01-19] MEDS ORDERED: SALINE FLUSH 10ml SYRINGE ONE (02:22)
[2017-01-19] MEDS ORDERED: NORMAL SALINE 100 ML ONE (02:22)
--- NOTE | 2017-01-19 02:30 | NUR ---
TO CT VIA CART
[2017-01-19 02:41] LABS: THYROID STIM HORMONE-TSH 1.71 MIU/L (0.47-4.68)
--- NOTE | 2017-01-19 02:50 | NUR ---
RETURN FROM CT
--- NOTE | 2017-01-19 03:15 | NUR ---
STATUS INFORMED PT WE ARE WAITING FOR CT RESULTS, THAT CAN BE AN HOUR. PT IS GIVEN WARM BLANKET AND LIGHTS ARE DIMMMED
[2017-01-19] MEDS ORDERED: CYCL-375 PO (04:16)
[2017-01-19] MEDS ORDERED: CYCLOBENZAPRINE 10MG (PrePack) SENT HOME ONE (04:30)
[2017-01-19 04:41] VITALS: BP 169/82; PULSE 67; RESP 18; TEMP 98.7; O2SAT 94
--- NOTE | 2017-01-19 04:44 | NUR ---
DEPART PT IS GIVEN DISMISSAL INSTRUCTIONS WITH VERBAL UNDERSTANDING. PT IS GIVEN A PREPACK X1, SCRIPT X1, WORK NOTE.
--- NOTE | 2017-01-19 08:36 | DI ---
Indication: ITS.REASON: Throat spasm CT CHEST and CT NECK W/CONTRAST: Comparison: None Technique: Patient scanned from the midbrain to below the diaphragms after 100 cc of 320 Visipaque is administered. Dose reduction imaging technologies used. Reformatted sagittal and coronal images are provided. Findings: CT neck: Patient demonstrated no acute findings in the base of the brain. The visualized sinuses showed no acute findings. Nasal and oral frontal soft tissues are unremarkable. Mastoid air cells are clear. Bone window evaluation showed just mild degenerative change in the mid and lower cervical disc spaces without suggestion of fracture or malalignment. Airway is well-maintained. No pathologic adenopathy is appreciated. Incidentally noted are minimal thyroid nodules of doubtful acute significance. CT chest Patient showed a pacemaker generator in place in the left pectoral region. Heart size is prominent but showed no suggestion of acute cardiac decompensation. No pathologically enlarged lymph nodes are appreciated. Pulmonary parenchyma shows no focal parenchymal consolidations or pleural effusions. Degenerative changes seen at multiple levels in the thoracic region with hypertrophic bony changes identified. Limited imaging below the diaphragm demonstrates no definitive acute findings with subtle nodularity in the left adrenal gland which is indeterminant. Impression: 1. No acute findings appreciated in the neck. Patient did show some small indeterminate thyroid nodules. 2. Pacemaker and mild cardiac prominence without overt heart failure. 3. Mild chronic lung changes but no acute findings. 4. Findings communicated to ordering clinician by the V rad service on a callback basis. .
== END 2017-01-19 04:44 | disposition home or self-care (01) ==
LOC: ED 01:04
DX: M62.838 Other muscle spasm (principal); E01.0 Iodine-deficiency related diffuse (endemic) goiter
CPT/HCPCS: 36415; 70491; 71260; 80053; 83735; 84100; 84443; 85027; 99284; J7050; J7999; Q9967